=== PATIENT | female | born 1985 | race Caucasian/White ===

== ENCOUNTER 2019-11-20 13:46 | Outpatient (REF) | payer MEDICAID, SELFPAY | END 2019-11-20 13:47 | disposition home or self-care (01) | LOC: HO.LNP 13:46 | PROVIDERS: PCP Family Medicine; Referring Provider Family Medicine; Visit Provider Advanced Practice Midwife | DX: O98.313 Other infections with a predominantly sexual mode of transmission complicating pregnancy, third trimester (principal); A60.09 Herpesviral infection of other urogenital tract; O99.013 Anemia complicating pregnancy, third trimester; D64.9 Anemia, unspecified; O09.293 Supervision of pregnancy with other poor reproductive or obstetric history, third trimester; O99.343 Other mental disorders complicating pregnancy, third trimester; F50.89 Other specified eating disorder; Z3A.36 36 weeks gestation of pregnancy; Z79.899 Other long term (current) drug therapy | CPT/HCPCS: 87081 ==

== ENCOUNTER → 2019-12-12 14:42 | Outpatient (BNVA) | payer MEDICAID, SELFPAY | PROVIDERS: Visit Provider Advanced Practice Midwife | DX: Z76.89 Persons encountering health services in other specified circumstances (principal) ==

== ENCOUNTER → 2019-12-19 15:20 | Outpatient (BNVA) | payer MEDICAID, SELFPAY | PROVIDERS: Visit Provider Advanced Practice Midwife | DX: Z76.89 Persons encountering health services in other specified circumstances (principal) ==

== ENCOUNTER → 2019-12-24 08:43 | Outpatient (BNVA) | payer MEDICAID, SELFPAY | PROVIDERS: Visit Provider Advanced Practice Midwife | DX: O98.513 Other viral diseases complicating pregnancy, third trimester (principal); B00.9 Herpesviral infection, unspecified; O99.013 Anemia complicating pregnancy, third trimester; D64.9 Anemia, unspecified; O99.343 Other mental disorders complicating pregnancy, third trimester; F50.89 Other specified eating disorder; Z79.899 Other long term (current) drug therapy; Z3A.40 40 weeks gestation of pregnancy | CPT/HCPCS: 59025 ==

== ENCOUNTER → 2020-02-05 12:45 | Outpatient (BNVA) | payer MEDICAID, SELFPAY | PROVIDERS: Visit Provider Advanced Practice Midwife | DX: Z39.2 Encounter for routine postpartum follow-up (principal); Z13.31 Encounter for screening for depression | CPT/HCPCS: 99212 ==

== ENCOUNTER → 2020-02-26 11:00 | Outpatient (BNVA) | payer MEDICAID, SELFPAY | PROVIDERS: Visit Provider Obstetrics & Gynecology | DX: Z76.89 Persons encountering health services in other specified circumstances (principal) ==

== ENCOUNTER 2020-03-07 12:16 | Outpatient (REF) | payer MEDICAID, SELFPAY | END 2020-03-07 12:17 | disposition home or self-care (01) | LOC: HO.LAB 12:16 | PROVIDERS: Visit Provider Internal Medicine | DX: Z20.822 Contact with and (suspected) exposure to COVID-19 (principal) | CPT/HCPCS: 36415; C9803; U0003 ==

== ENCOUNTER 2020-03-19 12:25 | Emergency (ER) | payer MEDICAID, SELFPAY ==
[2020-03-19 15:43] VITALS: BP 108/69; PULSE 102; RESP 17; TEMP 37.3; O2SAT 98; BMI 24.7
--- NOTE | 2020-03-19 16:07 | XR_ITS ---
EXAMINATION: XR CHEST CLINICAL INFORMATION: Cough COMPARISON: March 10, 2017 TECHNIQUE: AP portable view of the chest was obtained. FINDINGS: No significant abnormality is noted involving the heart, lungs, mediastinum, bony thorax or soft tissues. XR/XR chest 1V IMPRESSION: No acute disease.
--- NOTE | 2020-03-19 16:15 | ED_ITS ---
HPI - URI/Sore Throat General Chief Complaint: Upper Respiratory Symptoms Stated Complaint: covid symptoms Time Seen by Provider: 03/19/20 15:52 Source: patient Mode of arrival: ambulatory History of Present Illness HPI Narrative: 34-year-old female with a past medical history hemorrhage, gestational diabetes, presenting to the ED complaining of nasal congestion, chills, and mild productive cough of sputum x last week. Reports tested for COVID-19 last week and negative. Admits to her child's father testing positive for COVID-19. Denies fever, chest pain, shortness of breath, recent travel, abdominal pain, nausea/vomiting MD elicited complaint: cough Related Data Home Medications Medication Instructions Recorded Confirmed ferrous sulfate 325 mg (65 mg 325 mg PO DAILY 11/20/19 iron) tablet vitamin with calcium 1 tab PO DAILY 11/20/19 no.72-iron 27 mg-folic acid 1 mg tablet Previous Rx's Medication Instructions Recorded fluticasone propionate [Flonase 2 spray INTRANASAL DAILY #16 g 03/19/20 Allergy Relief] Allergies Allergy/AdvReac Type Severity Reaction Status Date / Time penicillin V Allergy Unknown shortness Verified 02/26/20 11:02 of breath From Pen-Vee K Allergy Intermediate CHILDHOOD Uncoded 11/01/19 17:15 ALLERGY-EXACERBATED ASTHMA Review of Systems Review of Systems: Constitutional: No Weight loss, No Fever, + Chills ENT/Mouth: No Ear Pain, + Nasal Congestion, No Sinus Pain, No Hoarseness, No sore throat, + Rhinorrhea, No Swallowing Difficulty Cardiovascular: No Chest Pain, No SOB Respiratory: + Cough, + Sputum, No Wheezing Gastrointestinal: No Nausea, No Vomiting, No Diarrhea, No Constipation, No Abdominal pain Musculoskeletal: No joint pain, No Myalgias, No Joint Swelling Skin: No Skin Lesions, No rash Yes all other systems are reviewed and are negative [facility] Past Medical History Attestation statement: The following information was validated with the patient. Medical History (Updated 03/19/20 @ 16:18 by LUIS ENRIQUE Stahl) Genital herpes Gestational diabetes History of abnormal cervical Pap smear History of blood transfusion hemorrhage Surgical History (Updated 02/26/20 @ 11:02 by Sugar Rodriguez MA) H/O dilation and curettage Family History Family History Paternal Grandfather Kidney disease Paternal Grandmother Kidney disease Diabetes mellitus Maternal Grandmother Diabetes mellitus Breast cancer Maternal Grandfather No problems noted. Social History Social History Alcohol intake: never Smoking Status: Never smoker Advance Directives: No Advance Directives Information Provided: Yes Gender identity: female Physical Exam Vital Signs: Vital Signs: Last Vital Signs Temp 99.1 F 03/19/20 15:43 Pulse 102 H 03/19/20 15:43 Resp 17 03/19/20 15:43 BP 108/69 03/19/20 15:43 Pulse Ox 98 03/19/20 15:43 Body Mass Index 24.7 Const: General: cooperative, healthy appearing, comfortable, no acute distress and well developed Orientation/consciousness: patient oriented x3 Limitations: no limitations HENMT: Head: Yes normal to inspection Ears: hearing grossly normal bilaterally General nose exam: Normal external nose present Face and sinus: Yes normal facial exam Eyes: General: appearance normal, both eyes and all related structures EOM: EOMs intact bilaterally Neck: Neck: Yes normal visual inspection and Yes no meningeal signs Resp: Effort & Inspection: normal respiratory effort Auscultation: clear to auscultation bilaterally, no rales, no rhonchi and no wheezes Cardio: Rate: regular rate Heart sounds: S1 normal heart sound present and S2 normal heart sound present GI: Inspection: Yes normal to inspection Skin: Rashes: no rashes Wounds: no wounds Neuro: General: patient oriented x3 and no meningeal signs Gait exam (Neuro): Normal gait present Extrem: General: Yes normal to inspection Course Course Course Narrative: -COVID-19/influenza/RSV negative MDM - URI/Sore Throat MDM Narrative Medical decision making narrative: On exam low-grade temp 99.1?, mildly tachycardic likely from fever. Nontoxic, lungs CTA. Concern for viral syndrome/COVID-19. Lower concern for pneumonia/bacterial infection. Low concern for PE/ACS Plan: COVID-19 testing, CXR, re-evaluated Medical Records Attestation: I reviewed the patient's medical records. Lab Data Labs: Lab Results 03/19/20 Range/Units 16:21 Coronavirus (PCR) NEGATIVE (Negative) Influenza Type A (PCR) NEGATIVE (Negative) Influenza Type B (PCR) NEGATIVE (Negative) RSV RNA Qual (PCR) NEGATIVE (Negative) Discharge Plan Discharge Clinical Impression: Upper respiratory infection Patient Disposition: Home, Self-Care Instructions: Viral Syndrome (ED) Additional Instructions: You tested negative for COVID-19/the flu/RSV. Flonase is a nasal decongestant, take as needed. Rest. Stay hydrated. Follow-up with her doctor CDC Guidelines for home isolation: - Stay away from others - WEAR A MASK if you are sick AND STAY HOME - Cover your mouth and nose with a tissue when you cough or sneeze. Dispose of tissues in a lined trash can and wash your hands immediately with soap and water for at least 20 seconds. If soap and water are not available, clean hands with alcohol-based hand political organizer that contains at least 60% alcohol. - Clean your hands often with soap and water for at least 20 seconds - Avoid touching your eyes, nose and mouth with unwashed hands - Do not share dishes, drinking glasses, cups, eating utensils, towels, or bedding with other people in your home. After using these items, wash them thoroughly with soap and water or put in the residential mortgage manager. - Clean high-touch surfaces in your isolation area ( sick room and bathroom) every day; let a caregiver clean and disinfect high-touch surfaces in other areas of the home. Clean the area or item with soap and water or another detergent if it is dirty. Then, use a household disinfectant. - Limit contact with pets and animals: If you must care for a pet, wash your hands before and after interacting with them) Prescriptions: New fluticasone propionate [Flonase Allergy Relief] 50 mcg/actuation spray,suspension 2 spray intranasal DAILY Qty: 16 RF: 0 No Action Plus (calcium carb) 27 mg iron- 1 mg tablet 1 tab PO DAILY RF: 0 ferrous sulfate 325 mg (65 mg iron) tablet 325 mg PO DAILY RF: 0 Referrals: Shanti Crane MD [Primary Care Provider] - 2 days
[2020-03-19] MEDS: Acetaminophen 325 MG TABLET 650 MG PO (16:18)
[2020-03-19 17:15] LABS: Influenza A PCR NEGATIVE (Negative); Influenza B PCR NEGATIVE (Negative); Resp Syncy Virus RNA Qual PCR NEGATIVE (Negative); SARS COV2 PCR INHOUSE NEGATIVE (Negative)
== END 2020-03-19 17:51 | disposition home or self-care (01) ==
PROVIDERS: Physician Assistant; Emergency Provider Emergency Medicine; PCP Family Medicine
DX: J06.9 Acute upper respiratory infection, unspecified (principal); Z20.822 Contact with and (suspected) exposure to COVID-19; R50.9 Fever, unspecified
CPT/HCPCS: 0241U; 36415; 71045; 99283

== ENCOUNTER 2020-04-08 13:28 | Outpatient (REF) | payer MEDICAID, SELFPAY | END 2020-04-08 13:29 | disposition home or self-care (01) | LOC: HO.LAB 13:28 | PROVIDERS: PCP Family Medicine; Visit Provider Obstetrics & Gynecology | DX: R87.610 Atypical squamous cells of undetermined significance on cytologic smear of cervix (ASC-US) (principal); R87.810 Cervical high risk human papillomavirus (HPV) DNA test positive; Z88.0 Allergy status to penicillin | CPT/HCPCS: 57454; 81025; 88305 ==

== ENCOUNTER → 2020-04-22 14:22 | Outpatient (BNVA) | payer MEDICAID, SELFPAY | PROVIDERS: PCP Family Medicine; Visit Provider Obstetrics & Gynecology ==

== ENCOUNTER → 2020-05-27 09:07 | Outpatient (BNVA) | payer MEDICAID, SELFPAY | PROVIDERS: PCP Family Medicine; Visit Provider Obstetrics & Gynecology | DX: Z30.09 Encounter for other general counseling and advice on contraception (principal) | CPT/HCPCS: 99212 ==

== ENCOUNTER 2020-05-29 07:09 | Day surgery (SDC) | payer MEDICAID, SELFPAY ==
[2020-05-23 11:18] VITALS: BMI 24.1
--- NOTE | 2020-05-27 14:05 | HO.ANESPROP2 ---
Documented by User: Flores Romero 05/27/20 14:06 HPI - Anesthesia Eval Consult details Narrative: 34yo F for Bilateral Salpingectomy Laparoscopic PMFSH Active Problems Active Problems: All Active Problems (Updated 04/22/20 @ 14:31 by Ho Aguayo MD) ASCUS with positive high risk HPV (Acute) Depression screen (Acute) Encounter for assessment (Acute) Decreased movement (Acute) Right calf pain (Acute) Anemia affecting (Acute) Supervision of other normal (Acute) Genital herpes affecting in third trimester (Acute) Past Medical History Medical History Genital herpes Gestational diabetes History of abnormal cervical Pap smear History of blood transfusion hemorrhage Family History Family History Paternal Grandfather Kidney disease Paternal Grandmother Kidney disease Diabetes mellitus Maternal Grandmother Diabetes mellitus Breast cancer Maternal Grandfather No problems noted. Surgical History Surgical History H/O dilation and curettage Social History Social History Are you a primary senior care provider to a significant other at home: No Do you presently have visiting nurse or other home services: No Alcohol intake: never Smoking Status: Never smoker Use of substances other than those prescribed or required for medical reasons: No Have you been hit, kicked, punched, or otherwise hurt by someone within the past year? If so, by whom?: No Advance Directives: No Advance Directives Information Provided: No Advance Directives on File: No Recently lost weight without trying: No Gender identity: female Meds Allergies Allergy/AdvReac Type Severity Reaction Status Date / Time penicillin V Allergy Unknown shortness Verified 05/27/20 09:13 of breath From Pen-Vee K Allergy Intermediate CHILDHOOD Uncoded 05/23/20 11:11 ALLERGY-EXACERBATED ASTHMA Exam Exam Date and Time: May 27, 2020 1405 Height,Weight and Vital Signs: Height 5 ft 2 in Weight 59.874 kg Assessment and Plan Assessment Anesthesia Assessment: Chart Reviewed Documented by User: Inna Moore 05/29/20 08:46 [facility] Past Medical History Medical History Genital herpes Gestational diabetes History of abnormal cervical Pap smear History of blood transfusion hemorrhage Family History Family History Paternal Grandfather Kidney disease Paternal Grandmother Kidney disease Diabetes mellitus Maternal Grandmother Diabetes mellitus Breast cancer Maternal Grandfather No problems noted. Family history of problems with anesthesia: No Surgical History Surgical History H/O dilation and curettage History of Problems with Anesthesia: No Social History Social History Are you a primary senior care provider to a significant other at home: No Do you presently have visiting nurse or other home services: No Alcohol intake: never Smoking Status: Never smoker Use of substances other than those prescribed or required for medical reasons: No Have you been hit, kicked, punched, or otherwise hurt by someone within the past year? If so, by whom?: No Advance Directives: No Advance Directives Information Provided: No Advance Directives on File: No Recently lost weight without trying: No Gender identity: female Meds Allergies Allergy/AdvReac Type Severity Reaction Status Date / Time penicillin V Allergy Unknown shortness Verified 05/27/20 09:13 of breath From Pen-Vee K Allergy Intermediate CHILDHOOD Uncoded 05/23/20 11:11 ALLERGY-EXACERBATED ASTHMA Exam Height,Weight and Vital Signs: Vital Signs Temp Pulse Resp BP Pulse Ox 05/29/20 07:37 97.2 F 88 16 108/69 97 Lab Results 05/29/20 Range/Units 07:20 Urine Test NEGATIVE (NEGATIVE) Airway Mallampati Class: II TM Dist: >3cm Neck ROM: Full Heart: RRR Lungs: CTAB Assessment and Plan Assessment Anesthesia Assessment: Anesthesia Plan Discussed and Chart Reviewed Final Anesthetic Review NPO: Yes ASA Class: II Final Preanesthetic Review: No Changes in Pt Med Stat, Meds/Allgs Chart Reviewed, Consent Obtained/Reviewed and Anes Risks/Benef Reviewed Patient Risk: Low Procedure Risk: Intermediate Assessment/Block/Sedation in SS: Assess/Block/Sedation-SS Anesthetic Plan Anesthetic Plan: GA Disposition: Standard PACU
[2020-05-29] VITALS (7 sets, daily range): BP systolic 99–108; BP diastolic 63–74; PULSE 88–107; RESP 16; TEMP 36.1–36.6; O2SAT 94–100
[2020-05-29 07:35] LABS: UPreg QC Valid YES; Urine Pregnancy NEGATIVE (NEGATIVE)
[2020-05-29] MEDS: Lactated Ringers 1,000 ML 100 ML IVCONT (07:52)
[2020-05-29] MEDS: Acetaminophen 325 MG TABLET 650 MG PO (07:53)
--- NOTE | 2020-05-29 08:50 | P.OP_ITS ---
Operative Note Operative Note Date of Service: 05/29/20 Narrative: Pre-operative Diagnosis: Unwanted fertility Post-operative Diagnosis: Unwanted fertility Procedures Performed: laparoscopic bilateral salpingectomy Ms. Leon is a 34yo who has completed her childbearing and desires permanent sterilization. Surgical Risks: The patient was informed of the risks and benefits of the procedure. Risks included but were not limited to bleeding; infection; injury to ovaries, uterus, bladder, bowels, nerves, and blood vessels. The patient was counseled on the risk of sterilization failure being about 1% on average. The patient was informed that in the event a occurs, the risk of ectopic is increased. The patient expressed understanding of the risks involved, all questions were answered, and the patient consented to the procedure. The patient had valid sterilization consent at the time of the procedure. The patient was taken to the operating room where a time out was performed to confirm correct patient and correct procedure. General anesthesia was esta blished. The patient was then positioned on the operating table in the dorsal lithotomy position with the legs supported using stirrups. All pressure points were padded and a warm blanket was placed to maintain control of core body temperature. The patient was then prepped and draped in the usual sterile fashion. A red rubber catheter was inserted and 200mL urine obtained. A spongestick was placed in the vagina for uterine manipulation. Attention was turned to the abdomen where a 5mm vertical infraumbilical incision was made. The 5mm trocar was introduced under direct visualization using the laparoscopy within the sleeve of the trocar. After intra-abdominal placement had been confirmed, the trocar was removed leaving the sleeve in place. The camera was introduced and pneumoperitoneum was established using carbon dioxide. Inspection of the abdominal cavity showed no gross abnormalities and there was no evidence of injury to the bowel, bladder, or vasculature. Attention was turned to the pelvis. The patient was placed into Trendelenburg position. The fallopian tubes and ovaries were visualized bilaterally. There were no abnormalities noted. A small incision was made in on the patient's left approximately 2cm superior to and 2cm medial to the left ASIS. A 5mm trocar was introduced through this incision under direct visualization with the laparoscope. The identical procedure was then performed on the right. The fallopian tubes were inspected bilaterally and the fimbriated ends of the fallopian tube were visualized bilaterally. The distal end of the right tube was grasped and lifted up and being careful to avoid the ovarian vessels, salpingectomy was performed walking the Ligasure device from the distal to the medial end of the tube, where it was cauterized and cut from the uterus at the cornua and removed through the trocar. The identical procedure was then performed on the left. The tubes were sent to pathology for analysis. The pneumoperitoneum was then evacuated. The laparoscope was removed and the trocar sleeves were removed. The skin incisions were closed using 3-0 Vicryl in a single interrupted suture and Dermabond was then applied. Good hemostasis was confirmed. The spongestick was removed from the vagina. The patient was transferred to the recovery room in stable condition. All needle, sponge, and instrument counts were noted to be correct x2 at the end of the procedure.
--- NOTE | 2020-05-29 08:50 | MHC.SHP ---
Pre-Procedural Eval Section A The patient is an INPATIENT: No Changes since office visit: No Cold of Flu in the past 2 weeks, No New Medical Problems, No Changes in Medication and No Patient answered all questions The History & Physical has been completed within 30 days and I have reviewed it.: Yes Section B Chief Complaint: Unwanted Fertility Allergies: Allergies Allergy/AdvReac Type Severity Reaction Status Date / Time penicillin V Allergy Unknown shortness Verified 05/27/20 09:13 of breath From Pen-Vee K Allergy Intermediate CHILDHOOD Uncoded 05/23/20 11:11 ALLERGY-EXACERBATED ASTHMA Plan I have reviewed the history and physical and performed a pertinent physical examination on my patient. No changes have occurred unless specified.
== END 2020-05-29 11:48 | disposition home or self-care (01) ==
LOC: HO.SSS 07:09
PROVIDERS: PCP Family Medicine; Visit Provider Obstetrics & Gynecology
PROC: (CPT 58661; principal; 2020-05-29 09:00)
DX: Z30.2 Encounter for sterilization (principal); A60.00 Herpesviral infection of urogenital system, unspecified; Z88.0 Allergy status to penicillin
CPT/HCPCS: 58661; 81025; 88302; J1100; J1885; J2250; J2405; J3010

== ENCOUNTER 2020-08-01 14:44 | Outpatient (REF) | payer MEDICAID, SELFPAY ==
--- NOTE | ~2020-08-01 | MM_ITS ---
EXAMINATION: MM DIAGNOSTIC DIGITAL BREAST TOMOSYNTHESIS, BILATERAL US DIAGNOSTIC ULTRASOUND BREAST, LEFT CLINICAL INFORMATION: 35-year-old with cyclical left mastodynia for several months. Patient 7 months post . No breast feeding past 5 months. No palpable mass. No prior breast imaging. Patient denies any right breast symptoms. Family history breast cancer maternal grandmother. The lifetime risk of breast cancer based on the Tyrer-Cuzick Model is 11%. COMPARISON: None (current study represents initial baseline exam). TECHNIQUE: Digital breast tomosynthesis is performed in both the craniocaudal and mediolateral oblique views along with computer-aided detection (CAD). Synthesized 2D images are generated from the tomosynthesis. Ultrasound left breast is targeted to the areas of clinical concern. Grayscale imaging and color Doppler are performed without and with harmonics. FINDINGS: There are scattered areas of fibroglandular density (ACR BI-RADS breast composition Category b). There are no significant masses, abnormal calcifications, or other abnormalities. The axilla and skin contours are unremarkable. There is no skin thickening or coarsening of the Stephen's ligaments. No lymphadenopathy. Ultrasound left breast demonstrates no cystic or solid mass or architectural abnormality. No focal duct ectasia. No hyperemia. No skin thickening or edema tracking in soft tissue planes. Results are discussed with the patient at time of visit. MM/MM tomosynthesis diagnostic BI IMPRESSION: 1. No mammographic evidence of malignancy or inflammatory changes. 2. Unremarkable targeted left breast ultrasound.. ASSESSMENT: BI-RADS 1: Negative RECOMMENDATION: 1. Patient cyclical breast pain should be managed based on the clinical impression. 2. Otherwise, routine annual screening mammography, beginning age 40, or earlier as clinical risk factors warrant. This patient's information was entered into a reminder system with a target due date for their next mammogram.
== END 2020-08-01 14:45 | disposition home or self-care (01) ==
LOC: HO.MAMMO 14:44
PROVIDERS: Visit Provider Family Medicine
DX: N64.4 Mastodynia (principal)
CPT/HCPCS: 76642; 77062; 77066

== ENCOUNTER 2020-08-25 13:24 | Outpatient (REF) | payer MEDICAID, SELFPAY ==
[2020-08-28 13:17] LABS: HPV mRNA E6/E7 rflx Not Detected (Not Detected)
== END 2020-08-25 13:25 | disposition home or self-care (01) ==
LOC: HO.LAB 13:24
PROVIDERS: PCP Family Medicine; Visit Provider Obstetrics & Gynecology
DX: Z01.419 Encounter for gynecological examination (general) (routine) without abnormal findings (principal); Z11.51 Encounter for screening for human papillomavirus (HPV); F41.8 Other specified anxiety disorders; Z88.0 Allergy status to penicillin
CPT/HCPCS: 87624; 88142

== ENCOUNTER 2020-09-24 14:20 | Outpatient (REF) | payer MEDICAID, SELFPAY | END 2020-09-24 14:21 | disposition home or self-care (01) | LOC: HO.LAB 14:20 | PROVIDERS: PCP Family Medicine; Visit Provider Obstetrics & Gynecology | DX: R87.610 Atypical squamous cells of undetermined significance on cytologic smear of cervix (ASC-US) (principal) | CPT/HCPCS: 57454; 88305 ==

== ENCOUNTER → 2020-10-07 11:40 | Outpatient (BNVA) | payer MEDICAID, SELFPAY | PROVIDERS: PCP Family Medicine; Visit Provider Obstetrics & Gynecology ==

== ENCOUNTER 2021-02-24 14:25 | Outpatient (REF) | payer MEDICAID, SELFPAY ==
[2021-02-25 09:09] LABS: BV Int Neg Control Negative (Negative); BV Int Pos Control Positive (Positive)
[2021-02-25 10:33] LABS: CT PCR NOT DETECTED (Not Detect.); NG PCR NOT DETECTED (Not Detect.)
== END 2021-02-24 14:26 | disposition home or self-care (01) ==
LOC: HO.LAB 14:25
PROVIDERS: PCP Family Medicine; Visit Provider Obstetrics & Gynecology
DX: N76.0 Acute vaginitis (principal); B96.89 Other specified bacterial agents as the cause of diseases classified elsewhere
CPT/HCPCS: 87480; 87491; 87510; 87591; 87660; 99212

== ENCOUNTER 2021-03-12 12:31 | Emergency (ER) | payer MEDICAID, SELFPAY ==
[2021-03-12 12:40] VITALS: BP 140/90; PULSE 106; RESP 18; TEMP 36.5; O2SAT 96; BMI 22.6
[2021-03-12 12:59] LABS: MANUAL DIFF FLAG NO
[2021-03-12 13:00] LABS: Basophils Absolute Auto 0.1 X10*3/uL (0.0-0.2); Basophils Percent Auto 0.4 % (0-2); Eosinophils Absolute Auto 0.2 X10*3/uL (0.0-0.4); Eosinophils Percent Auto 1.3 % (0-4); Hematocrit 39.9 % (37.0-47.0); Hemoglobin 12.9 g/dl (12.0-16.0); Imm Gran Abs Auto 0.04 X10*3/uL (0.00-0.03); Imm Gran Pct Auto 0.4 % (0.0-0.4); Lymphocytes Absolute Auto 3.6 X10*3/uL (1.2-4.9); Lymphocytes Percent Auto 31.8 % (20-40); Mean Corpuscular HGB Conc 32.3 g/dl (31.0-35.0); Mean Corpuscular Hemoglobin 27.6 pg (27.0-33.0); Mean Corpuscular Volume 85.4 fL (80.0-98.0); Mean Platelet Volume 9.1 fL (9.4-12.3); Monocytes Absolute Auto 0.7 X10*3/uL (0.1-1.2); Monocytes Percent Auto 6.1 % (2-11); Neutrophils Absolute Auto 6.7 x10*3/uL (2.0-8.3); Platelet Count 439 X10*3/uL (160-400); Red Blood Count 4.67 X10*6/uL (4.20-5.50); Red Cell Distribution Width 14.5 % (11.0-16.0); White Blood Count 11.2 X10*3/uL (4.8-10.8)
[2021-03-12 13:11] LABS: Appearance Urine HAZY; Color Urine YELLOW; Glucose Urine UA 100 MG/DL (NEG); Leukocyte Esterase Urine 1+ (NEG); Nitrite Urine NEG (NEG); PH 5.5 (5.0-8.0); Specific Gravity - Urine >= 1.030 (1.005-1.025); UACC Culture Trigger YES; Urine Blood 3+ (NEG); Urine Ketones NEG (NEG); Urine Protein NEG (NEG-TRACE)
[2021-03-12 13:12] LABS: UPreg QC Valid YES; Urine Pregnancy NEGATIVE (NEGATIVE)
[2021-03-12 13:14] LABS: Alanine Aminotransferase 14 U/L (0-31); Albumin Level 4.5 g/dL (3.5-5.0); Alkaline Phosphatase 83 U/L (39-117); Anion Gap 13 (12-20); Aspartate Amino Transferase 17 U/L (5-31); Bilirubin Total 0.4 mg/dL (0.0-1.0); Blood Urea Nitrogen 8 mg/dL (9-16); Calcium 9.8 mg/dL (8.4-10.2); Carbon Dioxide 23 mmol/L (22-29); Chloride 105 mmol/L (96-108); Creatinine Clr Calc Pharmacy 92.1; Estimated Glomerular Filt Rate > 60; Glucose Random 91 mg/dL (60-115); Potassium 4.3 mmol/L (3.3-5.1); Sodium 137 mmol/L (135-145); Total Protein 7.6 g/dL (6.5-8.0)
[2021-03-12 13:18] LABS: COVID-19 Test Negative (Negative)
[2021-03-12 13:23] LABS: Bacteria Urine 1+ /LPF; Squamous Epithelial Cell Urine 3+ /LPF
[2021-03-12 16:44] VITALS: BP 123/89; PULSE 84; O2SAT 99
--- NOTE | 2021-03-12 16:58 | ED_ITS ---
HPI - Headache General Chief Complaint: Headache Stated Complaint: headache R side pressure Time Seen by Provider: 03/12/21 16:57 Source: patient Mode of arrival: ambulatory Limitations: no limitations History of Present Illness HPI Narrative: Patient's history of migraine headaches in complaining of headache on the right side behind the eye for last 3 days no nausea no vomiting no radiation with posture no vision changes no fever or chills Related Data Home Medications Medication Instructions Recorded Confirmed trazodone 50 mg tablet 50 mg PO BEDTIME PRN 08/25/20 Previous Rx's Medication Instructions Recorded fluticasone propionate 50 2 spray INTRANASAL DAILY #16 g 03/19/20 mcg/actuation nasal spray,suspension (Flonase Allergy Relief) acetaminophen 650 mg 650 mg PO Q8H PRN #60 tab 05/28/20 tablet,extended release ibuprofen 800 mg tablet 800 mg PO Q8H PRN #60 tab 05/28/20 oxycodone 5 mg capsule 5 mg PO Q6H PRN #15 cap 05/28/20 metronidazole 500 mg tablet 500 mg PO BID 7 Days #14 tab 02/24/21 Allergies Allergy/AdvReac Type Severity Reaction Status Date / Time penicillin V Allergy Unknown shortness Verified 03/12/21 12:40 of breath From Pen-Vee K Allergy Intermediate CHILDHOOD Uncoded 05/23/20 11:11 ALLERGY-EXACER BATED ASTHMA Review of Systems Verdana 4l Review of Systems: Yes all other systems are reviewed and Verdana 4d are negative PMFSH Past Medical History Medical History ASCUS with positive high risk HPV Depression with anxiety Genital herpes Gestational diabetes History of abnormal cervical Pap smear History of blood transfusion hemorrhage Surgical History H/O dilation and curettage History of bilateral salpingectomy Family History Family History Paternal Grandfather Kidney disease Paternal Grandmother Kidney disease Diabetes mellitus Maternal Grandmother Diabetes mellitus Breast cancer Maternal Grandfather No problems noted. Social History Social History Are you a primary critical care physician to a significant other at home: No Do you presently have visiting nurse or other home services: No Alcohol intake: never Advance Directives: No Advance Directives Information Provided: No Gender identity: Female Physical Exam Verdana 4l Vital Signs: Verdana 4d Verdana 4d Vital Signs: Verdana 4d Verdana 4Bd Last Vital Signs Verdana 4d Driller Multiple Spindle New 4d Driller Multiple Spindle New 4d Temp 97.7 F 03/12/21 12:40 Driller Multiple Spindle New 4d Pulse 84 03/12/21 16:44 Driller Multiple Spindle New 4d Resp 18 03/12/21 12:40 BP 123/89 03/12/21 16:44 Pulse Ox 99 03/12/21 16:44 BMI result Body Mass Index 22.6 Appearance: Alert. Oriented X3. No acute distress. Eyes: PERRLA, no light sensitivity ENT: Pharynx normal. Oral Mucosa moist Neck: Normal inspection. Neck supple. CVS: Normal heart rate and rhythm. Pulses normal. Respiratory: No respiratory distress. Equal air entry bilateral, Abdomen: Soft and nontender. Bowel sounds are present, no mass palpable, no CVA tenderness Skin: Skin warm and dry. Normal skin color. Normal skin turgor. Extremities: No lower extremity edema. No calf tenderness Neuro: Oriented X 3. No motor deficit. No sensory deficit.No cerebellar signs , cranial nerves II-XII intact MDM - Headache MDM Narrative Medical decision making narrative: patient with recurrent migraine headaches came with right ocular pain improved after Imitrex patient feeling much better likely patient has ocular migraine will discharge patient home on Imitrex and Fioricet Lab Data Attestation: I reviewed the patient's lab results. Result diagrams: 03/12/21 12:47 03/12/21 12:47 Labs: Lab Results 03/12/21 03/12/21 03/12/21 Range/Units 12:47 12:47 12:47 WBC 11.2 H (4.8-10.8) X10*3/uL RBC 4.67 (4.20-5.50) X10*6/uL Hgb 12.9 (12.0-16.0) g/dl Hct 39.9 (37.0-47.0) % MCV 85.4 (80.0-98.0) fL MCH 27.6 (27.0-33.0) pg MCHC 32.3 (31.0-35.0) g/dl RDW 14.5 (11.0-16.0) % Plt Count 439 H (160-400) X10*3/uL MPV 9.1 L (9.4-12.3) fL Immature Gran % (Auto) 0.4 (0.0-0.4) % Neut % (Auto) 60.0 (45-73) % Lymph % (Auto) 31.8 (20-40) % [place] % (Auto) 6.1 (2-11) % Eos % (Auto) 1.3 (0-4) % Baso % (Auto) 0.4 (0-2) % Lymph # (Auto) 3.6 (1.2-4.9) X10*3/uL [place] # (Auto) 0.7 (0.1-1.2) X10*3/uL Eos # (Auto) 0.2 (0.0-0.4) X10*3/uL Baso # (Auto) 0.1 (0.0-0.2) X10*3/uL Abs Immat Gran (auto) 0.04 H (0.00-0.03) X10*3/uL Absolute Neuts (auto) 6.7 (2.0-8.3) x10*3/uL Absolute Nucleated RBC 0.000 (0.0-0.012) X10*3/uL Nucleated RBC % (auto) 0.0 (0.0-0.2) /100WBC Sodium 137 (135-145) mmol/L Potassium 4.3 (3.3-5.1) mmol/L Chloride 105 (96-108) mmol/L Carbon Dioxide 23 (22-29) mmol/L Anion Gap 13 (12-20) BUN 8 L (9-16) mg/dL Creatinine 0.68 (0.5-1.4) mg/dL Estim Creat Clear Calc 92.1 Estimated GFR > 60 Random Glucose 91 (60-115) mg/dL Calcium 9.8 (8.4-10.2) mg/dL Total Bilirubin 0.4 (0.0-1.0) mg/dL AST 17 (5-31) U/L ALT 14 (0-31) U/L Alkaline Phosphatase 83 (39-117) U/L Total Protein 7.6 (6.5-8.0) g/dL Albumin 4.5 (3.5-5.0) g/dL Urine Color Urine Appearance Urine pH (5.0-8.0) Ur Specific [place] (1.005-1.025) Urine Protein (NEG-TRACE) MG/DL Urine Glucose (UA) (NEG) MG/DL Urine Ketones (NEG) MG/DL Urine Blood (NEG) Urine Nitrite (NEG) Ur Leukocyte Esterase (NEG) Urine RBC (0) /HPF Urine WBC (0-4) /HPF Ur Squamous Epith Cells /LPF Urine Bacteria /LPF Urine Test (NEGATIVE) COVID-19 (TOBIAS) Negative (Negative) COVID-19 Clin Com See Note 03/12/21 03/12/21 Range/Units 13:03 13:03 WBC (4.8-10.8) X10*3/uL RBC (4.20-5.50) X10*6/uL Hgb (12.0-16.0) g/dl Hct (37.0-47.0) % MCV (80.0-98.0) fL MCH (27.0-33.0) pg MCHC (31.0-35.0) g/dl RDW (11.0-16.0) % Plt Count (160-400) X10*3/uL MPV (9.4-12.3) fL Immature Gran % (Auto) (0.0-0.4) % Neut % (Auto) (45-73) % Lymph % (Auto) (20-40) % [place] % (Auto) (2-11) % Eos % (Auto) (0-4) % Baso % (Auto) (0-2) % Lymph # (Auto) (1.2-4.9) X10*3/uL [place] # (Auto) (0.1-1.2) X10*3/uL Eos # (Auto) (0.0-0.4) X10*3/uL Baso # (Auto) (0.0-0.2) X10*3/uL Abs Immat Gran (auto) (0.00-0.03) X10*3/uL Absolute Neuts (auto) (2.0-8.3) x10*3/uL Absolute Nucleated RBC (0.0-0.012) X10*3/uL Nucleated RBC % (auto) (0.0-0.2) /100WBC Sodium (135-145) mmol/L Potassium (3.3-5.1) mmol/L Chloride (96-108) mmol/L Carbon Dioxide (22-29) mmol/L Anion Gap (12-20) BUN (9-16) mg/dL Creatinine (0.5-1.4) mg/dL Estim Creat Clear Calc Estimated GFR Random Glucose (60-115) mg/dL Calcium (8.4-10.2) mg/dL Total Bilirubin (0.0-1.0) mg/dL AST (5-31) U/L ALT (0-31) U/L Alkaline Phosphatase (39-117) U/L Total Protein (6.5-8.0) g/dL Albumin (3.5-5.0) g/dL Urine Color YELLOW Urine Appearance HAZY Urine pH 5.5 (5.0-8.0) Ur Specific [place] >= 1.030 H (1.005-1.025) Urine Protein NEG (NEG-TRACE) MG/DL Urine Glucose (UA) 100 H (NEG) MG/DL Urine Ketones NEG (NEG) MG/DL Urine Blood 3+ H (NEG) Urine Nitrite NEG (NEG) Ur Leukocyte Esterase 1+ H (NEG) Urine RBC 5-9 H (0) /HPF Urine WBC 5-9 H (0-4) /HPF Ur Squamous Epith Cells 3+ /LPF Urine Bacteria 1+ /LPF Urine Test NEGATIVE (NEGATIVE) COVID-19 (TOBIAS) (Negative) COVID-19 Clin Com Discharge Plan Discharge Clinical Impression: Ophthalmic migraine Patient Disposition: Home, Self-Care Instructions: Ocular Migraine (ED) Additional Instructions: take medication as prescribed Imitrex 1 tablet as soon as you notice headache may repeat the fill in 2 hours if headache continues not more than 2 pills in 24 hours Fioricet 1 tablet every 6 hours as needed if headache continues Prescriptions: No Action fluticasone propionate [Flonase Allergy Relief] 50 mcg/actuation spray,suspension 2 spray intranasal DAILY Qty: 16 0RF Rx Instructions: administer into each nostril ibuprofen 800 mg tablet 800 mg PO Q8H PRN (Reason: pain) Qty: 60 1RF acetaminophen 650 mg tablet extended release 650 mg PO Q8H PRN (Reason: pain) Qty: 60 1RF oxycodone 5 mg capsule 5 mg PO Q6H PRN (Reason: pain) Qty: 15 0RF Rx Instructions: Take in addition to ibuprofen and tylenol as needed for breakthrough pain trazodone 50 mg tablet 50 mg PO BEDTIME PRN0RF metronidazole 500 mg tablet 500 mg PO BID 7 Days Qty: 14 0RF
[2021-03-12] MEDS: SUMAtriptan succinate 6 MG/0.5 ML VIAL SUBCUT (17:13)
[2021-03-12] MEDS: Butalb/Acetamin/Caff 50/325/40 TABLET 1 TAB PO (18:35)
== END 2021-03-12 18:43 | disposition home or self-care (01) ==
PROVIDERS: Emergency Provider Internal Medicine; PCP Family Medicine
DX: G43.B0 Ophthalmoplegic migraine, not intractable (principal); Z20.822 Contact with and (suspected) exposure to COVID-19
CPT/HCPCS: 80053; 81001; 81025; 85025; 87086; 87635; 96372; 99284; J3030

== ENCOUNTER 2021-03-25 15:22 | Outpatient (REF) | payer MEDICAID, SELFPAY ==
--- NOTE | ~2021-03-25 | CT_ITS ---
EXAMINATION: CT HEAD WITHOUT CONTRAST CLINICAL INFORMATION: Headache COMPARISON: Previous head CT September 2010 TECHNIQUE: Contiguous axial imaging was performed from the skull base to vertex without intravenous administration of contrast. This CT examination was performed using dose optimization techniques as appropriate, variously including the following: *Automated exposure control *Adjustment of mA and/or kV according to patient size (this includes techniques or standardized protocols for targeted exams where dose is matched to indication/reason for exam; i.e. extremities or head) *Use of iterative reconstruction technique DLP: 647 mGy-cm FINDINGS: There is no evidence of acute intracranial hemorrhage or territorial infarction. No abnormal mass effect or midline shift is seen. [place] to white matter differentiation is well preserved. No extra-axial fluid collections are identified. The ventricles are normal in size. There is no abnormal attenuation within the brain parenchyma. The osseous structures and soft tissues are normal. There is complete opacification of the bilateral maxillary sinuses. Right maxillary sinus appears heterogeneous in attenuation with high and low attenuation areas probably representing long-standing infection/inspissated secretions. This is a new finding compared to 2011 exam. Left maxillary sinus appears low in attenuation with expansion questionable for a large polyp or mucous retention. Findings on the left are left are similar to previous exam. CT/CT head/brain wo con IMPRESSION: No acute intracranial disease. Right maxillary sinus disease new in the interval from previous exam. Probable large polyp or cyst in the left maxillary sinus similar to 2011 exam.
== END 2021-03-25 15:23 | disposition home or self-care (01) ==
LOC: HO.CT 15:22
PROVIDERS: Visit Provider Family Medicine
DX: R51.9 Headache, unspecified (principal)
CPT/HCPCS: 70450

== ENCOUNTER 2021-04-29 08:40 | Outpatient (REF) | payer MEDICAID, SELFPAY ==
[2021-04-29 15:57] LABS: CT PCR NOT DETECTED (Not Detect.); NG PCR NOT DETECTED (Not Detect.)
[2021-04-30 15:42] LABS: BV Int Neg Control Negative (Negative); BV Int Pos Control Positive (Positive)
== END 2021-04-29 08:41 | disposition home or self-care (01) ==
LOC: HO.LAB 08:40
PROVIDERS: PCP Family Medicine; Visit Provider Obstetrics & Gynecology
DX: B37.3 Candidiasis of vulva and vagina (principal); Z11.3 Encounter for screening for infections with a predominantly sexual mode of transmission
CPT/HCPCS: 87480; 87491; 87510; 87591; 87660; 99212

== ENCOUNTER 2021-05-04 12:00 | Outpatient (REF) | payer MEDICAID, SELFPAY ==
[2021-05-04 14:02] LABS: Syphilis Screen Nonreactive (Nonreactive)
[2021-05-06 07:49] LABS: HBsAGNum1 0.19 S/CO (0.00-0.99); HIV AB/AG Nonreactive (Nonreactive); HIV Num 1 0.06 S/CO (0.00-0.99); Hepatitis B Surface Antigen Negative (Negative)
[2021-05-06 08:30] LABS: ~HepC Num1 0.21 S/CO (0.00-0.79); ~Hepatitis C Antibody Nonreactive (Nonreactive)
== END 2021-05-04 12:01 | disposition home or self-care (01) ==
LOC: HO.LAB 12:00
PROVIDERS: PCP Family Medicine; Visit Provider Obstetrics & Gynecology
DX: Z11.3 Encounter for screening for infections with a predominantly sexual mode of transmission (principal); Z11.4 Encounter for screening for human immunodeficiency virus [HIV]; Z11.59 Encounter for screening for other viral diseases
CPT/HCPCS: 36415; 86780; 86803; 87340; 87389

== ENCOUNTER 2021-05-20 16:31 | Emergency (ER) | payer MEDICAID, SELFPAY ==
--- NOTE | ~2021-05-20 | CT_ITS ---
EXAMINATION: CT SOFT TISSUE NECK WITH CONTRAST CLINICAL INFORMATION: Fever. Sore throat. Abscess. COMPARISON: CT neck from 06/03/2010. TECHNIQUE: Multidetector helical imaging was performed in the axial plane following the administration of 60 mL of Omnipaque 350 intravenous contrast. Multiple axial reformats and coronal/sagittal reconstructions were created the technologist workstation for review. This CT examination was performed using dose optimization techniques as appropriate, variously including the following: *Automated exposure control. *Adjustment of mA and/or kV according to patient size (this includes techniques or standardized protocols for targeted exams where dose is matched to indication/reason for exam; i.e. extremities or head). *Use of iterative reconstruction technique. DLP: 421 mGy-cm FINDINGS: No significant cutaneous thickening or subcutaneous inflammation. No discrete fluid collection within the deep tissues of the neck. The premaxillary, retromaxillary, pterygopalatine fossa, orbital apical, parapharyngeal, and prelaryngeal adipose tissue is maintained. Normal appearance of the parotid, submandibular, and thyroid glands. Moderate smooth mucosal thickening throughout the pharynx. Moderate heterogeneous enlargement of the adenoids and bilateral palatine tonsils without demonstrated discrete fluid collection or mass lesion. Near abutment of the palatine tonsils in the midline. Associated moderate stenosis of the oropharyngeal airway. The remainder of the airway is widely patent. Moderately prominent upper cervical chain lymph nodes, measuring up to 2 cm in left level IIa and 1.6 cm in right level IIa. Otherwise, scattered subcentimeter lymph nodes bilaterally, none of which are pathologically enlarged or abnormally enhancing. Normal mucosal contours of the pharynx and larynx without abnormal enhancement. Normal appearance of the hyoid bone, thyroid cartilage, or cartilaginous trachea. No radiopaque foreign bodies. The atlantooccipital and atlantoaxial articulations remain well aligned. Reversal the normal cervical lordosis. Otherwise, there is anatomic alignment of the vertebral bodies and posterior elements. No evidence of acute fracture or subluxation of the cervical spine. The vertebral body heights are maintained. Mild degenerative disc disease at C5-C6 and C6-C7 with disc-osteophyte complex formation. No evidence of epidural collection. There is no prevertebral soft tissue swelling. Normal opacification of the cervical arterial and venous structures. The visualized portion of the skull base is without significant abnormalities. There is near complete opacification of the bilateral maxillary sinuses. Mild atelectasis of the right maxillary sinus. Moderate rightward nasal septal deviation with spurring. The mastoid air cells and middle ear cavities are clear. No demonstrated significant periapical odontogenic disease. CT Upper Chest: The visualized lung apices and upper mediastinum are within normal limits. CT/CT soft tissue neck w con IMPRESSION: Moderate diffuse mucosal thickening of the pharynx. Moderate heterogeneous enlargement of the adenoids and palatine tonsils without demonstrated focal lesion or collection. There is near abutment of the palatine tonsils within the midline with moderate narrowing of the oropharyngeal airway. The remainder of the airway is widely patent. Moderately prominent upper cervical chain lymph nodes, likely reactive in nature. Prominent bilateral maxillary sinus disease.
[2021-05-20 17:18] VITALS: BP 110/72; PULSE 125; RESP 20; TEMP 37.4; O2SAT 100; BMI 26.5
[2021-05-20 17:52] LABS: IDNOW Serial# 08D9AD1C; Strep A Nucleic Acid Negative (Negative)
[2021-05-20 17:58] LABS: Influenza A Negative (Negative); Influenza B2 Negative (Negative)
[2021-05-20 18:05] LABS: COVID-19 Test Negative (Negative); IDNOW Serial# 16C4AD1C
[2021-05-20 18:34] VITALS: BP 107/70; PULSE 129; RESP 18; TEMP 38; O2SAT 98
--- NOTE | 2021-05-20 18:49 | ED_ITS ---
HPI - General Adult General Chief complaint: Fever Stated complaint: fever/sore throat Time Seen by Provider: 05/20/21 18:40 Source: patient Mode of arrival: ambulatory Limitations: no limitations History of Present Illness HPI narrative: Patient comes to emergency room complaining of sore throat, fever, body aches since yesterday. Patient states that her boyfriend just return from [place], has similar symptoms. Patient denies vomiting or diarrhea. No cough. No shortness of breath or chest pain Related Data Previous Rx's Medication Instructions Recorded acetaminophen 650 mg 650 mg PO Q8H PRN #60 tab 05/28/20 tablet,extended release ibuprofen 800 mg tablet 800 mg PO Q8H PRN #60 tab 05/28/20 terconazole 0.8 % vaginal cream 1 appful VAGINAL BEDTIME 3 Days 04/29/21 #20 g Allergies Allergy/AdvReac Type Severity Reaction Status Date / Time penicillin V Allergy Unknown shortness Verified 05/20/21 17:22 of breath From Pen-Vee K Allergy Intermediate CHILDHOOD Uncoded 05/23/20 11:11 ALLERGY-EXACERBATED ASTHMA Review of Systems Review of Systems: Constitutional : No Weight loss, No Fever, No Chills, No Night Sweats, No Fatigue, No Malaise ENT/Mouth : No Hearing loss, No Ear Pain, No Nasal Congestion, No Sinus Pain, patient complaining of sore throat Eyes: No Eye Pain, No Swelling, No Redness, No Foreign Body, No Discharge, No Vision Changes Cardiovascular : No Chest Pain, No SOB, No Dyspnea on Exertion, No Orthopnea, No Edema, No Palpitations Respiratory : No Cough, No Sputum, No Wheezing, No Smoke Exposure, No Dyspnea Gastrointestinal : No Nausea, No Vomiting, No Diarrhea, No Constipation, No abdominal Pain, No Hematochezia, No Melena Genitourinary : no irregular bleeding, No Dysuria, No Urinary Frequency, No Hematuria, No Urinary Incontinence, No Urgency, No Flank Pain, No Urinary Flow Changes, No Hesitancy Musculoskeletal : No joint pain, No Myalgias, No Joint Swelling Skin : No Skin Lesions, No rash Neuro : No Weakness, No Numbness, No Paresthesias, No Loss of Consciousness, No Dizziness, No Headache Psych : No Anxiety/Panic, No Depression, No SI/HI/AH/VH, No Social Issues, Heme/Lymph: No Bruising, No Bleeding,No Lymphadenopathy Endocrine : No Polyuria, No Polydipsia, No Temperature Intolerance [facility] Past Medical History Medical History ASCUS with positive high risk HPV Depression with anxiety Genital herpes Gestational diabetes History of abnormal cervical Pap smear History of blood transfusion hemorrhage Surgical History H/O dilation and curettage History of bilateral salpingectomy Family History Family History Paternal Grandfather Kidney disease Paternal Grandmother Kidney disease Diabetes mellitus Maternal Grandmother Diabetes mellitus Breast cancer Maternal Grandfather No problems noted. Social History Social History Are you a primary client care coordinator to a significant other at home: No Do you presently have visiting nurse or other home services: No Alcohol intake: never Advance Directives: No Advance Directives Information Provided: No Patient : No Gender identity: Female Physical Exam ED Vital Signs: Vital Signs - 24 hr 05/20/21 17:18 05/20/21 18:34 05/20/21 20:15 Temperature 99.3 F 100.4 F 98.7 F Pulse Rate 125 H 129 H 119 H Respiratory Rate 20 18 18 Blood Pressure 110/72 107/70 111/70 Pulse Oximetry 100 98 100 BMI result Body Mass Index 26.5 Const Other: Appearance: Alert. Oriented X3. No acute distress. Eyes: Pupils equal, round and reactive to light. ENT: Patient has enlarged tonsils, with copious exits bilaterally, no abscess is visualized Neck: Normal inspection. Neck supple. No lymph nodes noted. No crepitus CVS: Normal heart rate and rhythm. Pulses normal. Normal S1 and S2 Respiratory: No respiratory distress. Breath sounds normal. No Wheezing. No rales Abdomen: Soft and nontender. No rigidity. No distention. Skin: Skin warm and dry. Normal skin color. Normal skin turgor. Extremities: No lower extremity edema. No Lacerations. No Rash Neuro: Oriented X 3. No motor deficit. No sensory deficit. Moving all extremities. No slurred speech. CN 2 through 12 grossly intact Psych: calm, cooperative, normal affect Course Course Course Narrative: Patient tested negative for strep throat, influenza a and COVID. Patient is tachycardic. Patient will be getting IV fluids, oral dexamethasone and viscous lidocaine for symptomatic relief. CBC, chemistry and Monospot test pending -patient tested negative for Monospot. Patient's white blood cell count is 26. 2. CT scan of the soft tissue of the neck to rule out abscess is pending. Sign-out given to Dr. Morrow Medical Decision Making Lab Data Result diagrams: 05/20/21 19:20 05/20/21 19:20 Labs: Lab Results 05/20/21 05/20/21 05/20/21 Range/Units 17:29 17:29 17:29 WBC (4.8-10.8) X10*3/uL RBC (4.20-5.50) X10*6/uL Hgb (12.0-16.0) g/dl Hct (37.0-47.0) % MCV (80.0-98.0) fL MCH (27.0-33.0) pg MCHC (31.0-35.0) g/dl RDW (11.0-16.0) % Plt Count (160-400) X10*3/uL MPV (9.4-12.3) fL Immature Gran % (Auto) (0.0-0.4) % Neut % (Auto) (45-73) % Lymph % (Auto) (20-40) % [place] % (Auto) (2-11) % Eos % (Auto) (0-4) % Baso % (Auto) (0-2) % Lymph # (Auto) (1.2-4.9) X10*3/uL [place] # (Auto) (0.1-1.2) X10*3/uL Eos # (Auto) (0.0-0.4) X10*3/uL Baso # (Auto) (0.0-0.2) X10*3/uL Abs Immat Gran (auto) (0.00-0.03) X10*3/uL Absolute Neuts (auto) (2.0-8.3) x10*3/uL Absolute Nucleated RBC (0.0-0.012) X10*3/uL Nucleated RBC % (auto) (0.0-0.2) /100WBC Smear Tech's Comments Sodium (135-145) mmol/L Potassium (3.3-5.1) mmol/L Chloride (96-108) mmol/L Carbon Dioxide (22-29) mmol/L Anion Gap (12-20) BUN (9-16) mg/dL Creatinine (0.5-1.4) mg/dL Estim Creat Clear Calc Estimated GFR Random Glucose (60-115) mg/dL Calcium (8.4-10.2) mg/dL Total Bilirubin (0.0-1.0) mg/dL Direct Bilirubin (0.0-0.5) mg/dL AST (5-31) U/L ALT (0-31) U/L Alkaline Phosphatase (39-117) U/L Total Protein (6.5-8.0) g/dL Albumin (3.5-5.0) g/dL Urine Color Urine Appearance Urine pH (5.0-8.0) Ur Specific [place] (1.005-1.025) Urine Protein (NEG-TRACE) MG/DL Urine Glucose (UA) (NEG) MG/DL Urine Ketones (NEG) MG/DL Urine Blood (NEG) Urine Nitrite (NEG) Ur Leukocyte Esterase (NEG) Urine RBC (0) /HPF Urine WBC (0-4) /HPF Ur Squamous Epith Cells /LPF Urine Bacteria /LPF Urine Test (NEGATIVE) COVID-19 (TOBIAS) Negative (Negative) COVID-19 Clin Com See Note Monoscreen (Negative) Influenza Type A (MAUDE) Negative (Negative) Influenza Type B (MAUDE) Negative (Negative) Influenza A & B Note See Note S. pyogenes GrpA MAUDE Negative (Negative) 05/20/21 05/20/21 05/20/21 Range/Units 19:20 19:20 19:20 WBC 26.2 H (4.8-10.8) X10*3/uL RBC 4.06 L (4.20-5.50) X10*6/uL Hgb 11.2 L (12.0-16.0) g/dl Hct 34.7 L (37.0-47.0) % MCV 85.5 (80.0-98.0) fL MCH 27.6 (27.0-33.0) pg MCHC 32.3 (31.0-35.0) g/dl RDW 14.6 (11.0-16.0) % Plt Count 293 D (160-400) X10*3/uL MPV 9.0 L (9.4-12.3) fL Immature Gran % (Auto) 0.8 H (0.0-0.4) % Neut % (Auto) 85.8 H (45-73) % Lymph % (Auto) 5.5 L (20-40) % [place] % (Auto) 7.7 (2-11) % Eos % (Auto) 0.0 (0-4) % Baso % (Auto) 0.2 (0-2) % Lymph # (Auto) 1.4 (1.2-4.9) X10*3/uL [place] # (Auto) 2.0 H (0.1-1.2) X10*3/uL Eos # (Auto) 0.0 (0.0-0.4) X10*3/uL Baso # (Auto) 0.1 (0.0-0.2) X10*3/uL Abs Immat Gran (auto) 0.21 H (0.00-0.03) X10*3/uL Absolute Neuts (auto) 22.5 H (2.0-8.3) x10*3/uL Absolute Nucleated RBC 0.000 (0.0-0.012) X10*3/uL Nucleated RBC % (auto) 0.0 (0.0-0.2) /100WBC Smear Tech's Comments VERIFIED Sodium 134 L (135-145) mmol/L Potassium 4.0 (3.3-5.1) mmol/L Chloride 104 (96-108) mmol/L Carbon Dioxide 21 L (22-29) mmol/L Anion Gap 13 (12-20) BUN 7 L (9-16) mg/dL Creatinine 0.64 (0.5-1.4) mg/dL Estim Creat Clear Calc 110.2 Estimated GFR > 60 Random Glucose 106 (60-115) mg/dL Calcium 9.1 D (8.4-10.2) mg/dL Total Bilirubin 0.6 (0.0-1.0) mg/dL Direct Bilirubin 0.3 (0.0-0.5) mg/dL AST 27 D (5-31) U/L ALT 39 H (0-31) U/L Alkaline Phosphatase 87 (39-117) U/L Total Protein 6.8 (6.5-8.0) g/dL Albumin 4.0 (3.5-5.0) g/dL Urine Color Urine Appearance Urine pH (5.0-8.0) Ur Specific [place] (1.005-1.025) Urine Protein (NEG-TRACE) MG/DL Urine Glucose (UA) (NEG) MG/DL Urine Ketones (NEG) MG/DL Urine Blood (NEG) Urine Nitrite (NEG) Ur Leukocyte Esterase (NEG) Urine RBC (0) /HPF Urine WBC (0-4) /HPF Ur Squamous Epith Cells /LPF Urine Bacteria /LPF Urine Test (NEGATIVE) COVID-19 (TOBIAS) (Negative) COVID-19 Clin Com Monoscreen Negative (Negative) Influenza Type A (MAUDE) (Negative) Influenza Type B (MAUDE) (Negative) Influenza A & B Note S. pyogenes GrpA MAUDE (Negative) 05/20/21 05/20/21 Range/Units 20:08 20:08 WBC (4.8-10.8) X10*3/uL RBC (4.20-5.50) X10*6/uL Hgb (12.0-16.0) g/dl Hct (37.0-47.0) % MCV (80.0-98.0) fL MCH (27.0-33.0) pg MCHC (31.0-35.0) g/dl RDW (11.0-16.0) % Plt Count (160-400) X10*3/uL MPV (9.4-12.3) fL Immature Gran % (Auto) (0.0-0.4) % Neut % (Auto) (45-73) % Lymph % (Auto) (20-40) % [place] % (Auto) (2-11) % Eos % (Auto) (0-4) % Baso % (Auto) (0-2) % Lymph # (Auto) (1.2-4.9) X10*3/uL [place] # (Auto) (0.1-1.2) X10*3/uL Eos # (Auto) (0.0-0.4) X10*3/uL Baso # (Auto) (0.0-0.2) X10*3/uL Abs Immat Gran (auto) (0.00-0.03) X10*3/uL Absolute Neuts (auto) (2.0-8.3) x10*3/uL Absolute Nucleated RBC (0.0-0.012) X10*3/uL Nucleated RBC % (auto) (0.0-0.2) /100WBC Smear Tech's Comments Sodium (135-145) mmol/L Potassium (3.3-5.1) mmol/L Chloride (96-108) mmol/L Carbon Dioxide (22-29) mmol/L Anion Gap (12-20) BUN (9-16) mg/dL Creatinine (0.5-1.4) mg/dL Estim Creat Clear Calc Estimated GFR Random Glucose (60-115) mg/dL Calcium (8.4-10.2) mg/dL Total Bilirubin (0.0-1.0) mg/dL Direct Bilirubin (0.0-0.5) mg/dL AST (5-31) U/L ALT (0-31) U/L Alkaline Phosphatase (39-117) U/L Total Protein (6.5-8.0) g/dL Albumin (3.5-5.0) g/dL Urine Color YELLOW Urine Appearance CLEAR Urine pH 6.0 (5.0-8.0) Ur Specific [place] <= 1.005 (1.005-1.025) Urine Protein NEG (NEG-TRACE) MG/DL Urine Glucose (UA) NEG (NEG) MG/DL Urine Ketones 15 (NEG) MG/DL Urine Blood TRACE (NEG) Urine Nitrite NEG (NEG) Ur Leukocyte Esterase 1+ H (NEG) Urine RBC 1-4 (0) /HPF Urine WBC 5-9 H (0-4) /HPF Ur Squamous Epith Cells 1+ /LPF Urine Bacteria 1+ /LPF Urine Test NEGATIVE (NEGATIVE) COVID-19 (TOBIAS) (Negative) COVID-19 Clin Com Monoscreen (Negative) Influenza Type A (MAUDE) (Negative) Influenza Type B (MAUDE) (Negative) Influenza A & B Note S. pyogenes GrpA MAUDE (Negative) Discharge Plan Discharge Clinical Impression: Acute sore throat, Fever Patient Disposition: Still a Patient Prescriptions: No Action ibuprofen 800 mg tablet 800 mg PO Q8H PRN (Reason: pain) Qty: 60 1RF acetaminophen 650 mg tablet extended release 650 mg PO Q8H PRN (Reason: pain) Qty: 60 1RF terconazole 0.8 % cream 1 appful vaginal BEDTIME 3 Days Qty: 20 0RF
[2021-05-20] MEDS: Acetaminophen 325 MG TABLET 650 MG PO (18:52)
[2021-05-20 19:26] LABS: Basophils Absolute Auto 0.1 X10*3/uL (0.0-0.2); Basophils Percent Auto 0.2 % (0-2); Hematocrit 34.7 % (37.0-47.0); Hemoglobin 11.2 g/dl (12.0-16.0); Imm Gran Abs Auto 0.21 X10*3/uL (0.00-0.03); Imm Gran Pct Auto 0.8 % (0.0-0.4); Lymphocytes Absolute Auto 1.4 X10*3/uL (1.2-4.9); Lymphocytes Percent Auto 5.5 % (20-40); MANUAL DIFF FLAG SCAN; Mean Corpuscular HGB Conc 32.3 g/dl (31.0-35.0); Mean Corpuscular Hemoglobin 27.6 pg (27.0-33.0); Mean Corpuscular Volume 85.5 fL (80.0-98.0); Monocytes Percent Auto 7.7 % (2-11); Neutrophils Absolute Auto 22.5 x10*3/uL (2.0-8.3); Neutrophils Percent Auto 85.8 % (45-73); Platelet Count 293 X10*3/uL (160-400); Red Blood Count 4.06 X10*6/uL (4.20-5.50); Red Cell Distribution Width 14.6 % (11.0-16.0); SCAN SMEAR FLAG 1; White Blood Count 26.2 X10*3/uL (4.8-10.8)
[2021-05-20] MEDS: 0.9 % Sodium Chloride 1,000 ML 999 ML IVCONT (19:27)
[2021-05-20 19:40] LABS: Alanine Aminotransferase 39 U/L (0-31); Alkaline Phosphatase 87 U/L (39-117); Anion Gap 13 (12-20); Aspartate Amino Transferase 27 U/L (5-31); Bilirubin Direct 0.3 mg/dL (0.0-0.5); Bilirubin Total 0.6 mg/dL (0.0-1.0); Blood Urea Nitrogen 7 mg/dL (9-16); Calcium 9.1 mg/dL (8.4-10.2); Carbon Dioxide 21 mmol/L (22-29); Chloride 104 mmol/L (96-108); Creatinine Clr Calc Pharmacy 110.2; Estimated Glomerular Filt Rate > 60; Glucose Random 106 mg/dL (60-115); Sodium 134 mmol/L (135-145); Total Protein 6.8 g/dL (6.5-8.0)
[2021-05-20] MEDS: Lidocaine HCl Viscous 2 % 15 ML SOLUTION MUCOUS MEM (19:46)
[2021-05-20] MEDS: dexAMETHasone 6 MG TABLET PO (19:46)
[2021-05-20 19:48] LABS: Monotest Negative (Negative); SLIDE REVIEW VERIFIED
[2021-05-20 20:15] VITALS: BP 111/70; PULSE 119; RESP 18; TEMP 37.1; O2SAT 100
[2021-05-20 20:15] LABS: Appearance Urine CLEAR; Color Urine YELLOW; Glucose Urine UA NEG (NEG); Leukocyte Esterase Urine 1+ (NEG); Nitrite Urine NEG (NEG); Specific Gravity - Urine <= 1.005 (1.005-1.025); UACC Culture Trigger YES; Urine Blood TRACE (NEG); Urine Ketones 15 MG/DL (NEG); Urine Protein NEG (NEG-TRACE)
[2021-05-20 20:19] LABS: UPreg QC Valid YES; Urine Pregnancy NEGATIVE (NEGATIVE)
[2021-05-20] MEDS: iohexoL 350 MG/ML 100 ML INFUS..BTL IV (20:34)
[2021-05-20 20:35] LABS: Bacteria Urine 1+ /LPF; Squamous Epithelial Cell Urine 1+ /LPF
[2021-05-20] MEDS: Clindamycin Phosphate/D5W 900 MG/50 ML PIGGYBACK 50 MG IV (22:19)
[2021-05-20] MEDS: Ketorolac Tromethamine 30 MG/ML VIAL IVPUSH (22:48)
== END 2021-05-20 23:02 | disposition home or self-care (01) ==
PROVIDERS: Emergency Provider Emergency Medicine; PCP Family Medicine
DX: R50.9 Fever, unspecified (principal); J02.9 Acute pharyngitis, unspecified; M79.10 Myalgia, unspecified site; Z20.822 Contact with and (suspected) exposure to COVID-19; Z79.899 Other long term (current) drug therapy
CPT/HCPCS: 36415; 70491; 80048; 80076; 81001; 81025; 85025; 86308; 87086; 87502; 87635; 87651; 96361; 96365; 96375; 99284; J1885; J8540; Q9967

== ENCOUNTER 2021-08-26 14:50 | Outpatient (REF) | payer MEDICAID, SELFPAY ==
[2021-09-01 01:06] LABS: HPV mRNA E6/E7 rflx Not Detected (Not Detected)
== END 2021-08-26 14:51 | disposition home or self-care (01) ==
LOC: HO.LAB 14:50
PROVIDERS: Visit Provider Obstetrics & Gynecology
DX: Z01.419 Encounter for gynecological examination (general) (routine) without abnormal findings (principal); Z11.51 Encounter for screening for human papillomavirus (HPV)
CPT/HCPCS: 87624; 88142

== ENCOUNTER 2021-11-18 09:48 | Outpatient (REF) | payer MEDICAID, SELFPAY ==
[2021-11-18 11:30] LABS: Syphilis Screen Nonreactive (Nonreactive)
[2021-11-18 11:34] LABS: HBsAGNum1 0.19 S/CO (0.00-0.99); HIV AB/AG Nonreactive (Nonreactive); HIV Num 1 0.06 S/CO (0.00-0.99); Hepatitis B Surface Antigen Negative (Negative); ~Hepatitis C Antibody Nonreactive (Nonreactive)
[2021-11-18 18:07] LABS: CT PCR NOT DETECTED (Not Detect.); NG PCR NOT DETECTED (Not Detect.)
[2021-11-19 13:26] LABS: BV Int Neg Control Negative (Negative); BV Int Pos Control Positive (Positive)
== END 2021-11-18 09:49 | disposition home or self-care (01) ==
LOC: HO.LAB 09:48
PROVIDERS: PCP Family Medicine; Visit Provider Obstetrics & Gynecology
DX: Z11.3 Encounter for screening for infections with a predominantly sexual mode of transmission (principal); Z11.4 Encounter for screening for human immunodeficiency virus [HIV]; B00.9 Herpesviral infection, unspecified
CPT/HCPCS: 86780; 86803; 87255; 87340; 87389; 87480; 87491; 87510; 87591; 87660; 99212

== ENCOUNTER → 2021-12-17 10:34 | Outpatient (BNVA) | payer MEDICAID, SELFPAY | PROVIDERS: PCP Family Medicine; Visit Provider Obstetrics & Gynecology | DX: B00.9 Herpesviral infection, unspecified (principal) | CPT/HCPCS: 99212 ==

== ENCOUNTER 2022-08-30 14:48 | Outpatient (AMB) | payer MEDICAID, SELFPAY ==
--- NOTE | 2022-08-30 14:51 | MHC.OFFVIS ---
Intake Vital Signs 08/30/22 14:52 Height 5 ft 2 in Weight 152 lb BMI 27.8 BP 116/70 Intake Visit Reasons: Annual Intake Note: no concerns Return To Factory Clerk Required: No Information Interpreted: non-clinical & clinical Binding Cutter: Binding Cutter Present (Luciana LONDONO) Accompanied by: Self / Same As Patient Allergies penicillin V Allergy (Unknown, Verified 08/30/22 14:54) shortness of breath From Pen-Vee K Allergy (Intermediate, Uncoded 08/30/22 14:54) CHILDHOOD ALLERGY-EXACERBATED ASTHMA Is last menstrual period known: Yes Last menstrual period: 08/03/22 HPI HPI Comments History of Present Illness Details Presenting for annual exam. No complaints. Last Pap/HPV was negative in 09/04, this was preceded by ascus/HPV positive, colpo biopsy GRACIELA 1 in 10/04 [facility] Medical History ASCUS with positive high risk HPV Depression with anxiety Genital herpes Gestational diabetes History of abnormal cervical Pap smear History of blood transfusion hemorrhage Surgical History H/O dilation and curettage History of bilateral salpingectomy Family History Paternal Grandfather Kidney disease Paternal Grandmother Kidney disease Diabetes mellitus Maternal Grandmother Diabetes mellitus Breast cancer Maternal Grandfather No problems noted. 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 Sexual orientation: Straight/Heterosexual Gender identity: Female Female Reproductive History Menstrual Age of Menarche: 13 Date of last menstrual period: 08/03/22 control method: permanent sterilization Total pregnancies: 5 Full term: 3 Number of Living Children: 3 Ab spontaneous: 2 Date of last pap smear: 08/27/21 Review of Systems Const All systems reviewed & are unremarkable except as noted in HPI and below Card Reports as per HPI Resp Reports as per HPI GI Reports as per HPI and Reports no additional complaints Reports as per HPI Physical Exam Vital Signs: BMI result Body Mass Index 27.8 Const General: cooperative, healthy appearing and comfortable Chest Chest palpation & inspection: normal inspection of the chest and normal palpation of entire chest wall Breast/axilla inspection: normal inspection of the breasts and normal inspection of the axillae Breast/axilla palpation: normal palpation of the breasts, normal palpation of the axillae and no axillary lymphadenopathy Resp Effort & Inspection: normal respiratory effort Auscultation: clear to auscultation bilaterally Percussion: percussion normal Cardio Palpation: normal PMI Rate: regular rate Rhythm: regular rhythm Heart sounds: no murmurs and no rubs Peripheral pulses: Peripheral pulses 2+ throughout GI Inspection: Yes normal to inspection Palpation (GI): Soft to palpation, nontender, no guarding, not rigid and No hepatosplenomegaly present Percussion: Yes normal to percussion Auscultation: normal bowel sounds Rectal Exam - Female: deferred General: Yes bladder normal to palpation External Female Exam: No lesion Speculum Exam - Vagina: normal appearance of the vagina, normal palpation, normal vaginal discharge and not erythematous Speculum Exam - Cervix: normal appearance of the cervix and normal palpation Bimanual exam- vagina & uterus: normal bimanual exam, normal palpation, uterine size normal, bladder normal to palpation, consistency normal and normal palpation Bimanual Exam- Adnexa, other: normal adnexae, no masses and no tenderness Assessment & Plan Assessment & Plan (1) Well woman exam: Comment: History of GRACIELA 1 in 2020 Code(s): Z01.419 - Encounter for gynecological examination (general) (routine) without abnormal findings Plan: Cotesting not indicated this year Counseled the patient about the recommended dietary allowance of 1000 mg of Calcium & 600 IU of vitamin D. The patient was instructed to perform monthly self-breast exams and to schedule an annual exam in a year; All questions answered and the patient verbalized understanding. Instructed the patient to schedule annual exam in a year Coding Level of Care Code Est Pt Prev Care 18-39y(18172) Diagnoses Well woman exam Z01.419
[2022-08-30 14:52] VITALS: BP 116/70; BMI 27.8
== END 2022-08-30 15:10 | disposition home or self-care (01) ==
LOC: HO.HWS 14:48
PROVIDERS: PCP Family Medicine; Visit Provider Obstetrics & Gynecology
DX: Z01.419 Encounter for gynecological examination (general) (routine) without abnormal findings (principal)
CPT/HCPCS: 99395

== ENCOUNTER → 2022-08-30 14:48 | Outpatient (BNVA) | payer MEDICAID, SELFPAY | PROVIDERS: PCP Family Medicine; Visit Provider Obstetrics & Gynecology ==

== ENCOUNTER 2023-11-03 10:12 | Outpatient (REF) | payer MEDICAID, SELFPAY ==
[2023-11-03 11:46] LABS: Estimated Average Glucose 105 mg/dL; Hemoglobin A1C 111.2802 umol/L; Hemoglobin A1c % 5.3 % (<6.0); Total Hemoglobin (HGBA1C) 3277.7755 umol/L
[2023-11-03 12:34] LABS: TSH reflex Free T4 1.28 uIU/mL (0.32-4.0)
== END 2023-11-03 10:13 | disposition home or self-care (01) ==
LOC: HO.HHCL 10:12
PROVIDERS: Visit Provider Family Medicine
DX: Z13.1 Encounter for screening for diabetes mellitus (principal); E66.3 Overweight
CPT/HCPCS: 36415; 83036; 84443

== ENCOUNTER 2024-01-18 08:25 | Outpatient (REF) | payer OTHER, SELFPAY ==
[2024-01-18 11:35] LABS: Syphilis Screen Nonreactive (Nonreactive)
[2024-01-18 11:36] LABS: HBsAGNum1 0.41 S/CO (0.00-0.99); HIV AB/AG Nonreactive (Nonreactive); HIV Num 1 0.05 S/CO (0.00-0.99); Hepatitis B Surface Antigen Negative (Negative); ~HepC Num1 0.25 S/CO (0.00-0.79); ~Hepatitis C Antibody Nonreactive (Nonreactive)
[2024-01-18 14:48] LABS: Bacterial Vaginosis PCR NEGATIVE (Negative); Candida Group PCR NOT DETECTED (Not Detect); Candida glab krusei PCR NOT DETECTED (Not Detect); Trichomonas vaginalis PCR NOT DETECTED (Not Detect)
[2024-01-18 15:13] LABS: CT PCR NOT DETECTED (Not Detect.); NG PCR NOT DETECTED (Not Detect.)
== END 2024-01-18 08:26 | disposition home or self-care (01) ==
LOC: HO.LAB 08:25
PROVIDERS: PCP Family Medicine; Visit Provider Obstetrics & Gynecology
DX: Z01.419 Encounter for gynecological examination (general) (routine) without abnormal findings (principal); Z11.3 Encounter for screening for infections with a predominantly sexual mode of transmission; Z20.2 Contact with and (suspected) exposure to infections with a predominantly sexual mode of transmission; N87.0 Mild cervical dysplasia; N63.0 Unspecified lump in unspecified breast
CPT/HCPCS: 0352U; 36415; 86780; 86803; 87340; 87389; 87491; 87591; 99395

== ENCOUNTER 2024-01-18 08:48 | Outpatient (AMB) | payer OTHER, SELFPAY ==
--- NOTE | 2024-01-18 08:44 | A.OFFVIS_ITS ---
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/DO NOT RS x2 Central Service Supply Distributor Required: Yes Central Service Supply Distributor Language: Paint Line Production Supervisor Services: Central Service Supply Distributor Present (in person) Central Service Supply Distributor Name: Luciana LONDONO Information Interpreted: non-clinical & clinical Liquor Bridge Operator: Liquor Bridge Operator Present (Luciana LONDONO) Accompanied by: Self / Same As Patient Allergies penicillin V Allergy (Unknown, Verified 01/18/24 08:48) shortness of breath From Pen-Vee K Allergy (Intermediate, Uncoded 01/18/24 08:48) CHILDHOOD ALLERGY-EXACERBATED ASTHMA Is last menstrual period known: Yes Last menstrual period: 01/07/24 HPI Comments Details: Presenting for annual exam. Complaining of bilateral breast pain. Requesting STD screen Last Pap/HPV was in 09/04 was negative, this was preceded by is biopsy proven GRACIELA 1 in 09/03 [facility] Medical History Depression with anxiety ASCUS with positive high risk HPV History of abnormal cervical Pap smear Genital herpes Gestational diabetes History of blood transfusion hemorrhage Surgical History History of bilateral salpingectomy H/O dilation and curettage Family History Paternal Grandfather Kidney disease Paternal Grandmother Kidney disease Diabetes mellitus Maternal Grandmother Diabetes mellitus Breast cancer Maternal Grandfather No problems noted. 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 Sexual orientation: Straight/Heterosexual Gender identity: Female Female Reproductive History Menstrual Age of Menarche: 13 Date of last menstrual period: 01/07/24 Total pregnancies: 5 Full term: 3 Number of Living Children: 3 Ab spontaneous: 2 Date of last pap smear: 08/27/21 Review of Systems Const All systems reviewed & are unremarkable except as noted in HPI and below Card Reports as per HPI Resp Reports as per HPI GI Reports as per HPI and Reports no additional complaints Reports as per [facility] Physical Exam Vital Signs: Last Vital Signs BP 102/60 01/18/24 08:47 BMI result Body Mass Index 28.9 Const General: cooperative, healthy appearing and comfortable Chest Chest palpation & inspection: normal inspection of the chest and normal palpation of entire chest wall Breast/axilla inspection: normal inspection of the breasts (R breast tender lump @9', 8 cm from nipple, L breast @4', 8 cm from nipple) and normal inspection of the axillae Breast/axilla palpation: normal palpation of the breasts, normal palpation of the axillae and no axillary lymphadenopathy Resp Effort & Inspection: normal respiratory effort Auscultation: clear to auscultation bilaterally Percussion: percussion normal Cardio Palpation: normal PMI Rate: regular rate Rhythm: regular rhythm Heart sounds: no murmurs and no rubs Peripheral pulses: Peripheral pulses 2+ throughout GI Inspection: Yes normal to inspection Palpation (GI): Soft to palpation, nontender, no guarding, not rigid and No hepatosplenomegaly present Percussion: Yes normal to percussion Auscultation: normal bowel sounds Rectal Exam - Female: deferred General: Yes bladder normal to palpation External Female Exam: No lesion Speculum Exam - Vagina: normal appearance of the vagina, normal palpation, normal vaginal discharge and not erythematous Speculum Exam - Cervix: normal appearance of the cervix and normal palpation Bimanual exam- vagina & uterus: normal bimanual exam, normal palpation, uterine size normal, bladder normal to palpation, consistency normal and normal palpation Bimanual Exam- Adnexa, other: normal adnexae, no masses and no tenderness Assessment & Plan Assessment & Plan (1) Well woman exam: Comment: History of GRACIELA 1 in 09/04 co testing negative Code(s): Z01.419 - Encounter for gynecological examination (general) (routine) without abnormal findings Category: Medical Plan: Cotesting done. Counseled the patient about the recommended dietary allowance of 1000 mg of Calcium & 600 IU of vitamin D. The patient was instructed to perform monthly self-breast exams and to schedule an annual exam in a year; All questions answered and the patient verbalized understanding. Instructed the patient to schedule annual exam in a year (2) Breast lump in female: Comment: R breast tender lump @9', 8 cm from nipple, L breast @4', 8 cm from nipple Code(s): N63.0 - Unspecified lump in unspecified breast Category: Medical Plan: Discussed with the patient the finding on Breast exam (bilateral breast breast lumps) .The differential diagnosis includes but not limited to lump/cyst/pre cancer/cancer or dense breast tissue. The work up includes bilateral breast US and diagnostic mammogram and referred the patient for surgical breast consult. (3) Screen for STD (sexually transmitted disease): Code(s): Z11.3 - Encounter for screening for infections with a predominantly sexual mode of transmission Category: Medical Plan: STD screening tests done includes: BV panel for trichomonas, GC/CT will send patient for serology std screening for HIV, RPR, Hep b s Ag, HepC Ab. Instructions given the patient to schedule a follow-up appointment for repeat serology screen in 6 months for possible false negatives. Orders: Orders US breast LT complete Today N63.0 - Unspecified lump in unspecified breast Hepatitis B Surface Antigen Today Z20.2 - Contact with and (suspected) exposure to infections with a predominantly sexual mode of transmission Syphilis Screen Today Z20.2 - Contact with and (suspected) exposure to infections with a predominantly sexual mode of transmission MM tomosynthesis diagnostic BI Today N63.0 - Unspecified lump in unspecified breast US breast RT complete Today N63.0 - Unspecified lump in unspecified breast Hepatitis C Antibody Today Z20.2 - Contact with and (suspected) exposure to infections with a predominantly sexual mode of transmission HIV Ab/Ag Today Z20.2 - Contact with and (suspected) exposure to infections with a predominantly sexual mode of transmission Coding Level of Care Code Est Pt Prev Care 18-39y(64132) Diagnoses Well woman exam Z01.419 Breast lump in female N63.0 Screen for STD (sexually transmitted disease) Z11.3
[2024-01-18 08:47] VITALS: BP 102/60; BMI 28.9
== END 2024-01-18 09:29 | disposition home or self-care (01) ==
PROVIDERS: PCP Family Medicine; Visit Provider Obstetrics & Gynecology
DX: Z01.419 Encounter for gynecological examination (general) (routine) without abnormal findings (principal); N63.0 Unspecified lump in unspecified breast; Z11.3 Encounter for screening for infections with a predominantly sexual mode of transmission
CPT/HCPCS: 99395

== ENCOUNTER 2024-01-18 09:33 | Outpatient (REF) | payer OTHER, SELFPAY ==
[2024-01-19 10:00] LABS: HPV 16,18/45 See PAP report
== END 2024-01-18 09:34 | disposition home or self-care (01) ==
LOC: HO.LNP 09:33
PROVIDERS: Visit Provider Obstetrics & Gynecology
DX: N87.0 Mild cervical dysplasia (principal); Z11.3 Encounter for screening for infections with a predominantly sexual mode of transmission
CPT/HCPCS: 87624; 88175

== ENCOUNTER 2024-03-02 11:17 | Outpatient (REF) | payer OTHER, SELFPAY ==
--- NOTE | ~2024-03-02 | MM_ITS ---
EXAMINATION: MM DIAGNOSTIC DIGITAL BREAST TOMOSYNTHESIS, BILATERAL Limited bilateral breast ultrasound. CLINICAL INFORMATION: Right breast tender lump in left breast lump felt by patient's physician. Patient unable to locate the exact spots today. COMPARISON: Mammography: Comparison is made with relevant prior exams. TECHNIQUE: Digital breast mammography with tomosynthesis is performed in both the craniocaudal and mediolateral oblique views along with computer-aided detection (CAD). Limited bilateral ultrasound. FINDINGS: The breasts are heterogeneously dense, which may obscure small masses (ACR BI-RADS breast composition Category c). Bilateral breast: There are no significant masses, abnormal calcifications, or other abnormalities. Targeted color Doppler ultrasound scanning in the lower outer quadrant of the left breast area of patient's palpable lump demonstrates normal fibroglandular breast tissue. Targeted color Doppler ultrasound scanning from 7-11 o'clock in the right breast area of palpable lump demonstrates normal fibronodular breast tissue. There is no sonographic abnormality. Results are provided to the patient at time of visit by the technologist. MM/MM tomosynthesis diagnostic BI IMPRESSION: No mammographic or sonographic abnormality to account for the bilateral palpable lumps. Recommend clinical evaluation and follow-up. ASSESSMENT: BI-RADS BI-RADS 1 - Negative RECOMMENDATION: 1 year F/U This patient's information was entered into a reminder system with a target due date for their next mammogram. Electronically signed by: Sarika Meza DO 03/06/2024 03:44 PM AL
== END 2024-03-02 11:18 | disposition home or self-care (01) ==
LOC: HO.MAMMO 11:17
PROVIDERS: PCP Family Medicine; Visit Provider Obstetrics & Gynecology
DX: N63.15 Unspecified lump in the right breast, overlapping quadrants (principal)
CPT/HCPCS: 77062; 77066

== ENCOUNTER → 2024-03-02 11:45 | Outpatient (BNV) | payer OTHER, SELFPAY | PROVIDERS: PCP Family Medicine; Visit Provider Internal Medicine | DX: N63.23 Unspecified lump in the left breast, lower outer quadrant (principal); N64.4 Mastodynia | CPT/HCPCS: 77062; 77066 ==

== ENCOUNTER → 2024-03-06 15:00 | Outpatient (BNV) | payer OTHER, SELFPAY | PROVIDERS: PCP Family Medicine; Visit Provider Internal Medicine | DX: N63.20 Unspecified lump in the left breast, unspecified quadrant (principal); N64.4 Mastodynia | CPT/HCPCS: 76642 ==

== ENCOUNTER 2024-03-06 15:08 | Outpatient (REF) | payer OTHER, SELFPAY ==
--- NOTE | ~2024-03-06 | US_ITS ---
EXAMINATION: MM DIAGNOSTIC DIGITAL BREAST TOMOSYNTHESIS, BILATERAL Limited bilateral breast ultrasound. CLINICAL INFORMATION: Right breast tender lump in left breast lump felt by patient's physician. Patient unable to locate the exact spots today. COMPARISON: Mammography: Comparison is made with relevant prior exams. TECHNIQUE: Digital breast mammography with tomosynthesis is performed in both the craniocaudal and mediolateral oblique views along with computer-aided detection (CAD). Limited bilateral ultrasound. FINDINGS: The breasts are heterogeneously dense, which may obscure small masses (ACR BI-RADS breast composition Category c). Bilateral breast: There are no significant masses, abnormal calcifications, or other abnormalities. Targeted color Doppler ultrasound scanning in the lower outer quadrant of the left breast area of patient's palpable lump demonstrates normal fibroglandular breast tissue. Targeted color Doppler ultrasound scanning from 7-11 o'clock in the right breast area of palpable lump demonstrates normal fibronodular breast tissue. There is no sonographic abnormality. Results are provided to the patient at time of visit by the technologist. US/US breast BI limited mamm only IMPRESSION: No mammographic or sonographic abnormality to account for the bilateral palpable lumps. Recommend clinical evaluation and follow-up. ASSESSMENT: BI-RADS BI-RADS 1 - Negative RECOMMENDATION: 1 year F/U This patient's information was entered into a reminder system with a target due date for their next mammogram. Electronically signed by: Sarika Meza DO 03/06/2024 03:44 PM AL
== END 2024-03-06 15:09 | disposition home or self-care (01) ==
LOC: HO.MAMMO 15:08
PROVIDERS: PCP Family Medicine; Visit Provider Obstetrics & Gynecology
DX: N63.0 Unspecified lump in unspecified breast (principal)
CPT/HCPCS: 76642

== ENCOUNTER 2024-03-13 15:28 | Outpatient (AMB) | payer OTHER, SELFPAY ==
--- NOTE | 2024-03-13 15:41 | A.OFFVIS_ITS ---
Intake Visit Reasons: mammo follow up Concrete Buster Operator: Concrete Buster Operator Present (Olya) Accompanied by: Self / Same As Patient Allergies penicillin V Allergy (Unknown, Verified 03/13/24 15:42) shortness of breath From Pen-Vee K Allergy (Intermediate, Uncoded 01/18/24 08:48) CHILDHOOD ALLERGY-EXACERBATED ASTHMA HPI Comments Details: Presenting for follow-up for bilateral breast pain and tender lumps identified on breast exam. Bilateral diagnostic breast mammogram and breast ultrasound was done and the results came back as BI-RADS 1. The patient is doing well breast pain-free and not feeling any lumps anymore [facility] Medical History Depression with anxiety ASCUS with positive high risk HPV History of abnormal cervical Pap smear Genital herpes Gestational diabetes History of blood transfusion hemorrhage Surgical History History of bilateral salpingectomy H/O dilation and curettage Family History Paternal Grandfather Kidney disease Paternal Grandmother Kidney disease Diabetes mellitus Maternal Grandmother Diabetes mellitus Breast cancer Maternal Grandfather No problems noted. 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 Sexual orientation: Straight/Heterosexual Gender identity: Female Female Reproductive History Menstrual Age of Menarche: 13 Physical Exam Chest Chest palpation & inspection: normal inspection of the chest Breast/axilla inspection: normal inspection of the breasts and normal inspection of the axillae Breast/axilla palpation: normal palpation of the breasts Assessment & Plan Assessment & Plan (1) Breast lump in female: Comment: Resolved Code(s): N63.0 - Unspecified lump in unspecified breast Category: Medical Plan: Discussed with the patient the results of the bilateral diagnostic breast mammogram and ultrasound and repeat breast exam showing no evidence of tenderne ss or lumps, discussed with the patient the sensitivity, specificity, false- positive false-negative rate of imaging and breast exam in detecting breast pathology. Instructions given to patient to call in case of recurrence of her breast pain and/ or lumps, nipple discharge or any other abnormality. All questions answered, the patient verbalized understanding. Coding Level of Care Code Est Pt Level 3 (76851) Diagnoses Breast lump in female N63.0
--- OUTSIDE RECORDS SUMMARY | 2024-03-13 16:25 | XMS_ITS | Clinical Summary ---
Author Organization [facility] it Address [address] [place] [address] Care Team Providers Care Sales Representative Meats Name Role Phone Unavailable Primary Care Provider Unavailabl e Surgical History Surgery Date Site/Laterality Comments OTHER SURGICAL HISTORY PROCEDURE: MS DILATION & CURETTAGE DX&/THER NONOBSTETRIC Medical History Medical History Date Comments hemorrhage DX:Postpar shoshana hemorrhage Genital herpes DX:Genital herpe s Fibromyalgia DX:Fibromyalgia Social History Tobacco Use Types Packs/Day Years Used Date Smoking Tobacco: Never Assessed Sex and Gender Information Value Date Recorded Sex Assigned at Not on file Gender Identity Not on file Sexual Orientation Not on file Obstetrics History Plan of Treatment Health Maintenance Due Date Last Done Comments DTaP,Tdap,and Td Vaccines (1 - Tdap) 2005 Hepatitis B Vaccines (1 of 3 - 19+ 3-dose series) 2005 Cervical Cancer Screening: P ap Smear 07/22/2007 COVID-19 Vaccine (2023-2 5 season) 2023 Influenza Vaccine (#1) 2023 HIB Vaccines Aged Out No longer eligi ble based on patient's age to complete this topic HPV Vaccines Aged Out No longer eligi ble based on patient's age to complete this topic Hepatitis A Vaccines Aged Out No long er eligible based on patient's age to complete this topic IPV Vaccines Aged Out No longer eligi ble based on patient's age to complete this topic MMR Vaccines Aged Out No longer eligi ble based on patient's age to complete this topic Meningococcal ACWY Vaccine Aged Out N o longer eligible based on patient's age to complete this topic Pneumococcal Vaccine: Pediat rics (0 to 5 Years) and At-Risk Patients (6 to 64 Years) Aged Out No longer eligible b ased on patient's age to complete this topic RSV Immunization Patients Un gautam 20 months Aged Out No longer eligible b ased on patient's age to complete this topic Varicella Vaccines Aged Out No longer eligible based on patient's age to complete this topic
--- OUTSIDE RECORDS SUMMARY | 2024-03-13 16:25 | XMS_ITS | Encounter Summary ---
Author Organization [employer] Address [address] [place] [address] [address] [place] [address] Care Team Providers Care Wide Piece Goods Inspector Name Role Phone Shanti Crane MD Primary Care Provider [phone] Encounter Details Date Type Department Care Team (Late st Contact Info) Description 11/19/2022 Abstract [facility] [address] [place] [address] Melissa Gallardo Social History Tobacco Use Types Packs/Day Years Used Date Smoking Tobacco: Never Smokeless Tobacco: Never Alcohol Use Standard Drinks/Week Comments Never 0 (1 standard drink = 0.6 oz pur e alcohol) Comments Unknown Sex and Gender Information Value Date Recorded Sex Assigned at Female 12/14/2021 10:17 AM EDT Legal Sex Female 10:17 AM EDT Gender Identity Female 12/14/2021 10:17 AM EDT Sexual Orientation Straight 12/14/2021 10 :17 AM EDT documented as of this encounter Plan of Treatment Not on file documented as of this encounter Procedures Procedure Name Priority Date/Time Associated Diagnosis Comments PAP/HPV Routine 08/26/2021 COLPOSCOPY Routine 09/24/2020 PAP/HPV Routine 08/25/2020 documented in this encounter Results * Pap Smear (08/26/2021) Pap Negative for intraephithelial lesion or malignancy Negative for intraephithelial lesion or malignancy, Other HPV Undetected Historical Provider HEALTH MAINTENANCE Final Result * Colposcopy (09/24/2020) Historical Provider IN CLINIC/BEDSIDE ORDERAB LES Final Result * (ABNORMAL) Pap Smear (08/25/2020) Pap Epithelial cell abnormality(A ) Negative for intraephithelial lesion or malignancy, Other Comment:ASCUS HPV Undetected Historical Provider HEALTH MAINTENANCE Final Result documented in this encounter Visit Diagnoses Not on filedocumented in this encounter Care Teams Wide Piece Goods Inspector Relationship Specialty Start Date End Date Shanti Crane MD [address] [place] [address] PCP - General Family Medicine 02/14/18 documented as of this encounter
--- OUTSIDE RECORDS SUMMARY | 2024-03-13 16:25 | XMS_ITS | Clinical Summary ---
Author Organization 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 2 Active fluticasone (Flonase) 50 MCG/ACT nasal sprayIndications:Se asonal allergic rhinitis, unspecified trigger SPRAY 2 SPRAYS INTO EACH NOSTRIL IN THE MORNING SHAKE GENTLY/PRIME BEFORE 1ST USE&CLEAN TIP/REPLACE CAP 48 mL 1 3 Active valACYclovir (Valtrex) 500 MG tablet TAKE 1 TABLET BY MOUTH TWICE A DAY FOR 3 DAYS 4 Active ibuprofen 400 MG tabletIndications:C hronic nonintractable headache, unspecified headache type,Upper back pain,Chronic low back pain, unspecified back pain laterality, unspecified whether sciatica present Take 1 tablet (400 mg) by mouth every 8 (eight) hours if needed for moderate pain, fever or headaches. 30 tablet 1 4 Active acetaminophen (Tylenol) 500 MG tabletIndications:C hronic nonintractable headache, unspecified headache type,Upper back pain,Chronic low back pain, unspecified back pain laterality, unspecified whether sciatica present Take 2 tablets (1,000 mg) by mouth every 8 (eight) hours if needed for moderate pain, fever or headaches. 30 tablet 1 4 Active cholecalciferol (D3-1000) 25 MCG (1000 UT) capsuleIndications: Vitamin D deficiency Take 1 capsule (25 mcg) by mouth Once per day. 90 capsule 1 4 Active Active Problems Problem Noted Date Diagnosed Date Headache 11/03/2023 Assessment & Plan (11/04/2023 6:12 AM EDT): - 10/07/[address] showed large polyp or retention cyst in L maxillary sinus - 03/25/[address]: No acute intracranial disease. Right maxillary sinus disease new in the interval from previous exam. Probable large polyp or cyst in the left maxillary sinus similar to 2010 exam. - multifactorial: sinus; tension; migraine; and stress-related - previously tried medications: propranolol (discontinued after a syncopal episode); amitriptyline - she has not been taking amitriptyline regularly - symptoms are manageable at this time Upper back pain 11/03/2023 Assessment & Plan (11/03/2023 9:46 AM EDT): - continue home stretching exercises - continue judicious use of acetaminophen or NSAIDs - will refer to PT Chronic lower back pain 11/03/2023 Assessment & Plan (11/03/2023 9:46 AM EDT): - continue home stretching exercises - continue judicious use of acetaminophen or NSAIDs - will refer to PT Macromastia 11/03/2023 Nasal polyp 11/03/2023 Assessment & Plan (11/04/2023 6:02 AM EDT): - 10/07/[address] showed large polyp or retention cyst in L maxillary sinus - 03/25/[address]: No acute intracranial disease. Right maxillary sinus disease new in the interval from previous exam. Probable large polyp or cyst in the left maxillary sinus similar to 2011 exam. History of cervical dysplasia 11/02/2023 Assessment & Plan (11/03/2023 4:57 AM EDT): -followed by [facility], last seen in August 2022 -08/25/20 ASCUS negative high-risk HPV -09/25/20 Colposcopy GRACIELA-I -August 2021 PAP NILM and negative high-risk HPV Fibromyalgia 04/30/2017 Overview (06/14/2022): Last Assessment & Plan: No acute symptoms. Outpatient management. Kidney stone 04/30/2017 Overview (06/14/2022): Last Assessment & Plan: As above, conservative management to be reevaluated in a.m. by the urology team Assessment & Plan (11/04/2023 6:08 AM EDT): - last kidney stone in Nvo 2018, left - s/p cystoscopy, ureteral stent in Dec 2018 and stent removal in Jan 2019. - continue adequate hydration. Vitamin D deficiency 03/13/2015 Allergic rhinitis 10/14/2013 Assessment & Plan (11/03/2023 9:46 AM EDT): - continue loratadine prn Chronic sinusitis 10/14/2013 Encounters Date Type Department Care Team Description 03/09/2024 Telephone [facility] [address] [place] [address] Princess Marroquin [place] april recall 03/06/2024 Orders Only [facility] External Provider, [facility] 03/02/2024 Orders Only [facility] External Provider, [facility] 01/18/2024 Orders Only GENERIC EXTERNAL DATA DEPARTMENT Provider, Generic External Data from Last 3 Months Immunizations Name Administration Dates Next Due DTaP 07/20/1990, 9,1986,1986,1986 Hep B, Adolescent or Pediatric 09/06/1998,1997,10/12/1997 Hib (HbOC) 07/26/1988 IPV 07/20/1990, 9,05/01/1987,1986,1986 Influenza Injectable Quadriv alant Preservative Free IIV4 MDCK 12/30/2020 Influenza injectable quadriv alent IIV4 with preservative 12/05/2014 Influenza injectable quadriv alent preservative free 12/26/2019,03/22/2018,01/24/2017,2016 Influenza, IIV3, injectable 10/14/2010 Influenza, seasonal, injecta ble, preservative free 11/03/2023 MMR 07/20/1990,10/27/1987 TD (adult), 2 Lf tetanus tox oid, preservative free, adsorbed 01/02/2009,10/10/1997 Tdap 09/27/2019,03/22/2018 Family History Medical History Relation Name Comments Breast cancer Maternal Grandmother Diabetes type II Maternal Grandmother Hypertension Maternal Grandmother Uterine cancer Maternal Grandmother Kidney disease Paternal Grandfather Relation Name Status Comments Maternal Grandmother Paternal Grandfather Social History Tobacco Use Types Packs/Day Years Used Date Smoking Tobacco: Never Smokeless Tobacco: Never Tobacco Cessation:Counseling Given: Not Answered Alcohol Use Standard Drinks/Week Comments Never 0 (1 standard drink = 0.6 oz pur e alcohol) Alcohol Answer Date Recorded Frequency of Alcohol Consumption Not on file 11/03/2023 Average Number of Drinks Not on file 024 Frequency of Binge Drinking Not on file 10/15 Score 0 11/03/2023 Depression Answer Date Recorded Patient Health Questionnaire-9 Score 0 11/03/2023 Patient Health Questionnaire-9 Score 0 11/03/2023 Last PHQ-9: Questionnaire Data Not on file 0 11/03/2023 Housing Stability Answer Date Recorded What is your housing situation today? Not on bernardo e 11/03/[address] you li ve. Do you have problems with any of the following? None of the above 11/03/2023 Food Insecurity Answer Date Recorded Within the past 12 months, y ou worried that your food would run out before you got money to buy more: Never True 11/03/2023 Within the past 12 months,th e food you bought just didn't last and you didn't have enough money to get more: Never True Transportation Answer Date Recorded In the past 12 months, has l ack of transportation kept you from medical appts, meetings, work or from getting things needed for daily living? No 11/03/2023 Utilities Answer Date Recorded In the past 12 months, has t he electric, gas, oil or water company threatened to shut off services in your home? No 11/03/2023 Depression Answer Date Recorded Patient Health Questionnaire-2 Score 0 11/03/2023 Internet Access Answer Date Recorded Internet Access Q1 Yes 11/03/2023 Internet Access Q2 Not on file 11/03/2023 Comments Unknown Sex and Gender Information Value Date Recorded Sex Assigned at Female 12/14/2021 10:17 AM EDT Legal Sex Female 10:17 AM EDT Gender Identity Female 12/14/2021 10:17 AM EDT Sexual Orientation Straight 12/14/2021 10 :17 AM EDT Last Filed Vital Signs Vital Sign Reading Time Taken Comments Blood Pressure 108/76 11/03/2023 9:22 AM EDT Pulse 78 11/03/2023 9:22 AM EDT Temperature 36.3 ??C (97.3 ??F) 11/03/2023 9:22 AM ED T Respiratory Rate 17 11/03/2023 9:22 AM EDT Oxygen Saturation 99% 11/03/2023 9:22 AM EDT Inhaled Oxygen Concentration - - Weight 68.5 kg (151 lb) 11/03/2023 9:22 AM EDT Height 157.6 cm (5' 2.03 ) 11/03/2023 9:22 AM ED T Body Mass Index 27.59 11/03/2023 9:22 AM EDT Plan of Treatment Health Maintenance Due Date Last Done Comments SDOH Screening 1985 COVID-19 Vaccine ( season) 2023 01/17/2021, 06/16/2020, 05/19/2020 Cervical Cancer Screening 08/26/2024 HPV/Cotest 08/26/2024 08/26/2021, 08/14, 08/26/2021, Additional history exists Pap Smear 08/26/2024 08/26/2021, 08/25/2020 Alcohol/Substance Use Screening 11/02/2024 11/03/2023 Depression Screening 11/02/2024 11/03/2023, 11/03/19 24 Family Planning (PISQ) 11/03/2024 11/04/2023 Tobacco Screening 11/03/2024 11/04/2023 DTaP/Tdap/Td Vaccines (7 - Td or Tdap) 09/26/2029 09/27/2019, 03/22/2018, 01/02/2009, Additional history exists Zoster Vaccines (1 of 2) 2036 RSV Patients and Patients Aged 60 years or older (1 - 1-dose 75+ series) 2061 HIB Vaccines Completed 07/26/1988 IPV Vaccines Completed 07/20/1990, 08/1988, 05/01/1987, Additional history exists Hepatitis B Vaccines Completed 09/06/1998, 11/18/1997, 10/12/1997 Influenza Vaccine Completed 11/03/2023, , 12/26/2019, Additional history exists HIV Screening Completed 01/18/2024, 06/2021, 05/04/2021, Additional history exists Hepatitis C Screening Completed 01/18/2024 , 11/18/2021, 05/04/2021, Additional history exists HPV Vaccines Aged Out No longer eligi ble based on patient's age to complete this topic Hepatitis A Vaccines Aged Out No long er eligible based on patient's age to complete this topic Meningococcal Vaccine Aged Out No edison antonina eligible based on patient's age to complete this topic Pneumococcal Vaccine: Pediatrics (0 to 5 Years) and At-Risk Patients (6 to 64 Years) Aged Out No longer eligible based on patient's age to complete this topic RSV under 20 months Aged Out No longe r eligible based on patient's age to complete this topic Rotavirus Vaccines Aged Out No longer eligible based on patient's age to complete this topic Procedures Procedure Name Priority Date/Time Associated Diagnosis Comments BI US BREAST LIMITED BILATERAL Routine 03/06/2024 3:12 PM EST BI MAMMOGRAM DIAGNOSTIC TOMOSYNTHESIS BILATERAL Routine 03/02/2024 11:30 AM EST HEPATITIS B SURFACE ANTIGEN, EIA Routine 01/18/2024 9:23 AM EST HIV 1/2 ANTIGEN/ANTIBODY, FOURTH GENERATION W/RFL Routine 01/18/2024 9:23 AM EST HEPATITIS C ANTIBODY Routine 01/18/2024 9:23 AM EST SYPHILIS SCREEN Routine 01/18/2024 9:23 AM EST CHLAMYDIA/N. GONORRHOEAE RNA, TMA, UROGENITAL Routine 01/18/2024 8:25 AM EST BACTERIAL VAGINOSIS PANEL Routine 01/18/2024 8:25 AM EST HM PAP/HPV Routine 08/26/2021 from Last 3 Months or Most Recently Relevant to Health Maintenance Results * BI US Breast Limited Bilateral (03/06/2024 3:12 PM EST) Anatomical Region Laterality Modality Breast Bilateral Ultrasound 03/06/2024 3:12 PM EST Narrative 03/06/2024 3:47 PM EST ? [facility] [place] ? [address] ?[place] [address] ? Ultrasound Report ? Signed ? Patient: Leon,Cata ?MR#: [id number] ?? 90 ? : 1985 ?Acct:[id number] ? Age/Sex: 38 / F ?ADM Date: 03/06/24 ? Loc: HO.MAMMO ? Attending Dr: Ho Aguayo MD ? Ordering Physician: Ho Aguayo MD ?? Date of Service: 03/06/24 ?? Procedure(s): US breast BI limited mamm only ?? Accession Number(s): [id number] ? cc: Shanti Crane MD; Ho Aguayo MD ? EXAMINATION: ?? MM DIAGNOSTIC DIGITAL BREAST TOMOSYNTHESIS, BILATERAL ? Limited bilateral breast ultrasound. ? CLINICAL INFORMATION: ? Right breast tender lump in left breast lump felt by patient's ?? physician. Patient unable to locate the exact spots today. ? COMPARISON: ?? Mammography: Comparison is made with relevant prior exams. ? TECHNIQUE: ?? Digital breast mammography with tomosynthesis is performed in both the ?? craniocaudal and mediolateral oblique views along with computer-aided ?? detection (CAD). ?? Limited bilateral ultrasound. ? FINDINGS: ?? The breasts are heterogeneously dense, which may obscure small masses ?? (ACR BI-RADS breast composition Category c). ?? Bilateral breast: ?? There are no significant masses, abnormal calcifications, or other ?? abnormalities. ? Targeted color Doppler ultrasound scanning in the lower outer quadrant ?? of the left breast area of patient's palpable lump demonstrates normal ?? fibroglandular breast tissue. ? Targeted color Doppler ultrasound ??scanning from 7-11 o'clock in the ?? right breast area of palpable lump demonstrates normal fibronodular ?? breast tissue. There is no sonographic abnormality. ? Results are provided to the patient at time of visit by the ?? technologist. ? US/US breast BI limited mamm only ?? IMPRESSION: ?? No mammographic or sonographic abnormality to account for the bilateral ?? palpable lumps. Recommend clinical evaluation and follow-up. ? ASSESSMENT: ? BI-RADS BI-RADS 1 - Negative ? RECOMMENDATION: ?? 1 year F/U ? This patient's information was entered into a reminder system with a ?? target due date for their next mammogram. ? Electronically signed by: ??Sarika Meza DO ??03/06/2024 03:44 PM EST ? Dictated By: ?Sarika Meza DO ? Signed By: ?<Electronically signed by Sarika Meza, DO in OV> ? 03/06/24 1544 ? DD/ 1512 ? TD/TT: 03/06/24 1538 ? Boarding Specialist: ? Procedure Note Kamini, Image - 03/06/2024 [place] [facility] [address] [place] [address] Ultrasound Report Signed Patient: Wei Leon#: [id number] 90 : 1985Acct:[id number] Age/Sex: 38 / FADM Date: 03/06/24 Loc: [facility] Attending Dr: Ho Aguayo MD Ordering Physician: Ho Aguayo MD Date of Service: 03/06/24 Procedure(s): US breast BI limited mamm only Accession Number(s): [id number] cc: Shanti Crane MD; Ho Aguayo MD EXAMINATION: MM DIAGNOSTIC DIGITAL BREAST TOMOSYNTHESIS, BILATERAL Limited bilateral breast ultrasound. CLINICAL INFORMATION: Right breast tender lump in left breast lump felt by patient's physician. Patient unable to locate the exact spots today. COMPARISON: Mammography: Comparison is made with relevant prior exams. TECHNIQUE: Digital breast mammography with tomosynthesis is performed in both the craniocaudal and mediolateral oblique views along with computer-aided detection (CAD). Limited bilateral ultrasound. FINDINGS: The breasts are heterogeneously dense, which may obscure small masses (ACR BI-RADS breast composition Category c). Bilateral breast: There are no significant masses, abnormal calcifications, or other abnormalities. Targeted color Doppler ultrasound scanning in the lower outer quadrant of the left breast area of patient's palpable lump demonstrates normal fibroglandular breast tissue. Targeted color Doppler ultrasound scanning from 7-11 o'clock in the right breast area of palpable lump demonstrates normal fibronodular breast tissue. There is no sonographic abnormality. Results are provided to the patient at time of visit by the technologist. US/US breast BI limited mamm only IMPRESSION: No mammographic or sonographic abnormality to account for the bilateral palpable lumps. Recommend clinical evaluation and follow-up. ASSESSMENT: BI-RADS BI-RADS 1 - Negative RECOMMENDATION: 1 year F/U This patient's information was entered into a reminder system with a target due date for their next mammogram. Electronically signed by: Sarika Meza DO 03/06/2024 03:44 PM EST Dictated By: Sarika Meza DO Signed By: <Electronically signed by Sarika Meza DO in OV> 03/06/24 1544 DD/ 1512 TD/TT: 03/06/24 1538 Boarding Specialist: [facility] External Provider IMG US PROCEDURES Final Result * BI Mammogram Diagnostic Tomosynthesis Bilateral (03/02/2024 11:30 AM EST) Anatomical Region Laterality Modality Breast Bilateral Mammography 03/02/2024 11:3 0 AM EST Narrative 03/06/2024 3:47 PM EST ? [facility] ? [address] ?[place] [address] ? Mammography Report ? Signed ? Patient: Leon,Cata ?MR#: [id number] ?? 90 ? : 1985 ?Acct:[id number] ? Age/Sex: 38 / F ?ADM Date: 03/02/24 ? Loc: HO.MAMMO ? Attending Dr: Ho Aguayo MD ? Ordering Physician: Ho Aguayo MD ?Results: 1Negativ ?? e ? Date of Service: 03/02/24 ?Follow Up: 1 Year From Orig ?? inal Mammogram ? Procedure(s): MM tomosynthesis diagnostic BI ?? Accession Number(s): [id number] ? cc: Shanti Crane MD; Ho Aguayo MD ? EXAMINATION: ?? MM DIAGNOSTIC DIGITAL BREAST TOMOSYNTHESIS, BILATERAL ? Limited bilateral breast ultrasound. ? CLINICAL INFORMATION: ? Right breast tender lump in left breast lump felt by patient's ?? physician. Patient unable to locate the exact spots today. ? COMPARISON: ?? Mammography: Comparison is made with relevant prior exams. ? TECHNIQUE: ?? Digital breast mammography with tomosynthesis is performed in both the ?? craniocaudal and mediolateral oblique views along with computer-aided ?? detection (CAD). ?? Limited bilateral ultrasound. ? FINDINGS: ?? The breasts are heterogeneously dense, which may obscure small masses ?? (ACR BI-RADS breast composition Category c). ?? Bilateral breast: ?? There are no significant masses, abnormal calcifications, or other ?? abnormalities. ? Targeted color Doppler ultrasound scanning in the lower outer quadrant ?? of the left breast area of patient's palpable lump demonstrates normal ?? fibroglandular breast tissue. ? Targeted color Doppler ultrasound ??scanning from 7-11 o'clock in the ?? right breast area of palpable lump demonstrates normal fibronodular ?? breast tissue. There is no sonographic abnormality. ? Results are provided to the patient at time of visit by the ?? technologist. ? MM/MM tomosynthesis diagnostic BI ?? IMPRESSION: ?? No mammographic or sonographic abnormality to account for the bilateral ?? palpable lumps. Recommend clinical evaluation and follow-up. ? ASSESSMENT: ? BI-RADS BI-RADS 1 - Negative ? RECOMMENDATION: ?? 1 year F/U ? This patient's information was entered into a reminder system with a ?? target due date for their next mammogram. ? Electronically signed by: ??Sarika Meza DO ??03/06/2024 03:44 PM EST ?? RP ? Dictated By: ?Sarika Meza DO ? Signed By: ?<Electronically signed by Sarika Meza, DO in OV> ? 03/06/24 1544 ? DD/ 1130 ? TD/TT: 03/02/24 1201 ? Boarding Specialist: ? Procedure Note Donharsh, Image - 03/06/2024 [place] [facility] [address] [place] [address] Mammography Report Signed Patient: Wei Leon#: [id number] 90 : 1985Acct:[id number] Age/Sex: 38 / FADM Date: 03/02/24 Loc: [facility] Attending Dr: Ho Aguayo MD Ordering Physician: Ho Aguayoesults: 1Negativ e Date of Service: 03/02/24Follow Up: 1 Year From Orig inal Mammogram Procedure(s): MM tomosynthesis diagnostic BI Accession Number(s): [id number] cc: Shanti Crane MD; Ho Aguayo MD EXAMINATION: MM DIAGNOSTIC DIGITAL BREAST TOMOSYNTHESIS, BILATERAL Limited bilateral breast ultrasound. CLINICAL INFORMATION: Right breast tender lump in left breast lump felt by patient's physician. Patient unable to locate the exact spots today. COMPARISON: Mammography: Comparison is made with relevant prior exams. TECHNIQUE: Digital breast mammography with tomosynthesis is performed in both the craniocaudal and mediolateral oblique views along with computer-aided detection (CAD). Limited bilateral ultrasound. FINDINGS: The breasts are heterogeneously dense, which may obscure small masses (ACR BI-RADS breast composition Category c). Bilateral breast: There are no significant masses, abnormal calcifications, or other abnormalities. Targeted color Doppler ultrasound scanning in the lower outer quadrant of the left breast area of patient's palpable lump demonstrates normal fibroglandular breast tissue. Targeted color Doppler ultrasound scanning from 7-11 o'clock in the right breast area of palpable lump demonstrates normal fibronodular breast tissue. There is no sonographic abnormality. Results are provided to the patient at time of visit by the technologist. MM/MM tomosynthesis diagnostic BI IMPRESSION: No mammographic or sonographic abnormality to account for the bilateral palpable lumps. Recommend clinical evaluation and follow-up. ASSESSMENT: BI-RADS BI-RADS 1 - Negative RECOMMENDATION: 1 year F/U This patient's information was entered into a reminder system with a target due date for their next mammogram. Electronically signed by: Sarika Meza DO 03/06/2024 03:44 PM EST Dictated By: Sarika Meza DO Signed By: <Electronically signed by Sarika Meza DO in OV> 03/06/24 1544 DD/ 1130 TD/TT: 03/02/24 1201 Boarding Specialist: [facility] External Provider IMG BI PROCEDURES Final Result * Syphilis Screen (01/18/2024 9:23 AM EST) Syphilis Screen Nonreactive Nonreactive [facility] 01/18/2024 9:23 AM EST 01/18/2024 9:23 AM EST Generic External Data Provider LAB BLOOD ORDERAB LES Final Result Performing Organization Address [facility] Co de Phone Number [facility] [address] [place] [phone] * Hepatitis C Ab (01/18/2024 9:23 AM EST) Hepatitis C Antibody Nonreactive Nonreactive [facility] Comment:Antibodies to HCV no t detected; does not exclude early acuteHCV infection. 01/18/2024 9:23 AM EST 01/18/2024 9:23 AM EST Generic External Data Provider LAB BLOOD ORDERAB LES Final Result Performing Organization Address [facility] Phone Number [facility] [address] [place] [phone] * Hepatitis B surface antigen, EIA (01/18/2024 9:23 AM EST) Hepatitis B Surface Ag Negative Negative [facility] 01/18/2024 9:23 AM EST 01/18/2024 9:23 AM EST Generic External Data Provider LAB BLOOD ORDERAB LES Final Result Performing Organization Address [facility] Phone Number [facility] [address] [place] [phone] * HIV-1/2 Antigen and Antibodies, Fourth Generation, with Reflexes (01/18/2024 9:23 AM EST) HIV AB/AG Nonreactive Nonreactive [facility] Comment:HIV-1 p24 Ag and/or HIV-1/HIV-2 Ab not detected.A test result that is nonreactive does not exclude thepossibility of exposure to or infection with HIV-1 and/orHIV-2. Nonreactive results in this assay for individualswith prior exposure to HIV-1 and/or HIV-2 may be due toantigen and antibody levels that are below the limit ofdetection of this assay.The [employer] HIV Ag/Ab Combo assay result andsupplemental assay results should be interpreted inconjunction with the patient's clinical presentation,history and other laboratory results. If the results areinconsistent with clinical evidence, additional testing issuggested to confirm the result. 01/18/2024 9:23 AM EST 01/18/2024 9:23 AM EST Generic External Data Provider LAB BLOOD ORDERAB LES Final Result Performing Organization Address [facility] Co de Phone Number [facility] [address] [place] [phone] * Bacterial Vaginosis (01/18/2024 8:25 AM EST) Pathologist [facility] TRICHOMONAS VAGINALIS DETECTION BY PCR NOT DETECTED Not Detect [facility] BACTERIAL VAGINOSIS DETECTION BY PCR NEGATIVE Negative [facility] Comment:The BV organism targ ets of the Xpert Xpress MVP test can becommensal in women; Xpert Xpress MVP positive results forbacterial vaginosis should be considered in conjunction withother clinical and patient information to determine thedisease status. Organisms that are not detected by the XpertXpress MVP test have also been reported to be associatedwith BV and aerobic vaginitis.The Xpert Xpress MVP test performance has not been evaluatedin patients under the age of 14. CORINA GROUP DETECTION BY PCR NOT DETECTED Not Detect [facility] Corina glab krusei PCR NOT DETECTED Not Detect [facility] 01/18/2024 8:25 AM EST 01/18/2024 1:25 PM EST Generic External Data Provider LAB MICROBIOLOGY - GENERAL ORDERABLES Final Result Performing Organization Address [facility] Co de Phone Number [facility] [address] [place] [phone] * Chlamydia/N. Gonorrhoeae RNA, TMA, Urogenitial (01/18/2024 8:25 AM EST) CT PCR NOT DETECTED Not Detect. [facility] Comment:A not detected test result does not exclude the possibilityof infection because test results can be affected byimproper specimen collection, concurrent antibiotic therapy,or the number of organisms in the specimen which may bebelow the sensitivity of the test. As with many diagnostictests, results from the Xpert CT/NG assay should beinterpreted in conjunction with other laboratory andclinical data available to the clinician.Xpert CT/NG performance has not been evaluated in patientsless than 14 years of age. The assay should not be used forthe evaluationof suspected sexual abuse or for other medico-legalindications. Additional testing is recommended in anycircumstance when false positive or false negative resultscould lead to adverse medical, social or psychologicalconsequences. NG PCR NOT DETECTED Not Detect. [facility] Comment:A not detected test result does not exclude the possibilityof infection because test results can be affected byimproper specimen collection, concurrent antibiotic therapy,or the number of organisms in the specimen which may bebelow the sensitivity of the test. As with many diagnostictests, results from the Xpert CT/NG assay should beinterpreted in conjunction with other laboratory andclinical data available to the clinician.Xpert CT/NG performance has not been evaluated in patientsless than 14 years of age. The assay should not be used forthe evaluationof suspected sexual abuse or for other medico-legalindications. Additional testing is recommended in anycircumstance when false positive or false negative resultscould lead to adverse medical, social or psychologicalconsequences. 01/18/2024 8:25 AM EST 01/18/2024 1:25 PM EST Narrative [facility] - 01/18/2024 3:13 PM EST Vaginal us Generic External Data Provider LAB MICROBIOLOGY - GENERAL ORDERABLES Final Result [facility] [address] [place] [address] [phone] * Hm Pap Smear (08/26/2021) Pap Negative for intraephithelial lesion or malignancy Negative for intraephithelial lesion or malignancy, Other HPV Undetected Historical Provider HEALTH MAINTENANCE Final Result from Last 3 Months or Most Recently Relevant to Health Maintenance Insurance HSN PARTIAL Care Teams Licensed Massage Practitioner Relationship Specialty Start Date End Date Shanti Crane MD [address] [place] [phone] PCP - General Family Medicine 02/14/18
--- OUTSIDE RECORDS SUMMARY | 2024-03-13 16:25 | XMS_ITS | Encounter Summary ---
Author Organization [employer] Address [address] [facility] 7t [place] [address] Care Team Providers Care Marine Service Station Attendant Name Role Phone Shanti Crane MD Primary Care Provider Reason for Visit * Reason Onset Date Comments april recall 03/09/2024 Encounter Details Date Type Department Care Team (Late st Contact Info) Description 03/09/2024 Telephone [facility] [address] [place] [address] Princess Marroquin [place] april recall Social History Tobacco Use Types Packs/Day Years [...] AM EDT documented as of this encounter Miscellaneous Notes * Telephone Encounter - Princess Marroquin MA - 03/09/2024 10:25 AM EST .DORITA called the patient to schedule a visit and no answer. Message left to call back and schedule. (April recall RV headache / back pain. ) documented in this encounter Plan of Treatment Not on file documented as of this encounter Visit Diagnoses Not on filedocumented in this encounter Additional Health Concerns Assessment Noted Time PHQ-9 Depression Total Score: 0 11/03/19 24 9:20 AM EDT documented as of this encounter Care Teams Marine Service Station Attendant Relationship Specialty Start Date End Date Shanti Crane MD [address] [place] [phone] PCP - General Family Medicine 02/14/18 documented as of this encounter
--- OUTSIDE RECORDS SUMMARY | 2024-03-13 16:25 | XMS_ITS | Encounter Summary ---
Author Organization [employer] Address [address] [facility] 7t [place] [address] Care Team Providers Care Crew Team Member Name Role Phone Shanti Crane MD Primary Care Provider [phone] Encounter Details Date Type Department Care Team (Late st Contact Info) Description 03/02/2024 Orders Only [facility] External Provider, [facility] Social History Tobacco Use Types Packs/Day Years [...] Name Priority Date/Time Associated Diagnosis Comments BI MAMMOGRAM DIAGNOSTIC TOMOSYNTHESIS BILATERAL Routine 03/02/2024 11:30 AM EST documented in this encounter Results * BI Mammogram Diagnostic Tomosynthesis Bilateral (03/02/2024 11:30 AM EST) Anatomical Region Laterality Modality Breast Bilateral Mammography 03/02/2024 11:3 0 AM EST Narrative 03/06/2024 3:47 PM EST ? [facility] [place] ? [address] ?[place] [address] ? Mammography Report ? Signed ? Patient: Leon,Cata ?MR#: [id number] ?? 90 ? : 1985 ?Acct:[id number] ? Age/Sex: 38 / F ?ADM Date: 01/17/25 ? Loc: HO.MAMMO ? Attending Dr: Ho Aguayo MD ? Ordering Physician: Ho Aguayo MD ?Results: 1Negativ ?? e ? Date of Service: 03/02/24 ?Follow Up: 1 Year From Orig ?? inal Mammogram ? Procedure(s): MM tomosynthesis diagnostic BI ?? Accession Number(s): [id number] ? cc: Shanti Crane MD; Ho Aguayo [...] DD/ 1130 ? TD/TT: 03/02/24 1201 ? Family Medicine Physician Assistant: ? Procedure Note Donotpipeinterpreter, Image - 03/06/2024 [facility] [address] [place] [address] Mammography Report Signed Patient: Wei Leon#: [id number] 90 : 1985Acct:[id number] Age/Sex: 38 / FADM Date: 03/02/24 Loc: [place] Attending Dr: Ho Aguayo MD Ordering Physician: Ho Aguayo MDResults: 1Negativ e Date of Service: 03/02/24Follow Up: 1 Year From Orig ina Mammogram Procedure(s): MM tomosynthesis diagnostic BI Accession Number(s): [id number] cc: Shanti Crane MD; Ho Aguayo MD [...] by: Sarika Meza DO 03/06/2024 03:44 PM [facility] Dictated By: Sarika Meza DO Signed By: <Electronically signed by Sarika Meza DO in OV> 03/06/24 1544 DD/ 1130 TD/TT: 03/02/24 1201 Family Medicine Physician Assistant: [facility] External Provider IMG BI PROCEDURES Final Result documented in this encounter Visit Diagnoses Not on filedocumented in this encounter Additional Health Concerns Assessment Noted Time PHQ-9 Depression Total Score: 0 11/03/19 24 9:20 AM EDT documented as of this encounter Care Teams Crew Team Member Relationship Specialty Start Date End Date Shanti Crane MD [address] [place] [address] PCP - General Family Medicine 02/14/18 documented as of this encounter
--- OUTSIDE RECORDS SUMMARY | 2024-03-13 16:25 | XMS_ITS | Encounter Summary ---
Author Organization [employer] Address [address] [facility] 7t [place] [address] Care Team Providers Care Building Manager Name Role Phone Shanti Crane MD Primary Care Provider [phone] Encounter Details Date Type Department Care Team (Late st Contact Info) Description 03/06/2024 Orders Only [facility] External Provider, [facility] Social History Tobacco Use Types Packs/Day [...] LIMITED BILATERAL Routine 03/06/2024 3:12 PM EST documented in this encounter Results * BI US Breast Limited Bilateral (03/06/2024 3:12 PM EST) Anatomical Region Laterality Modality Breast Bilateral Ultrasound 03/06/2024 3:12 PM EST Narrative 03/06/2024 3:47 PM EST ? [facility] [place] ? [address] ?[place] [address] ? Ultrasound Report ? Signed ? Patient: Cata Leon ?MR#: [id number] ?? 90 ? : 1985 ?Acct:[id number] ? Age/Sex: 38 / F ?ADM Date: 03/06/24 ? Loc: HO.MAMMO ? Attending Dr: Ho Aguayo MD ? Ordering Physician: Ho Aguayo MD ?? Date of Service: 03/06/24 ?? Procedure(s): US breast BI limited mamm only ?? Accession Number(s): [id number] ? cc: Shanti Crane MD; Ho Aguayo [...] DD/ 1512 ? TD/TT: 03/06/24 1538 ? Dust Puller: ? Procedure Note Radha Suárez - 03/06/2024 [facility] [address] [place] [address] Dr. [place], [place] [address] Ultrasound Report Signed Patient: Shruti LeonStephen#: [id number] 90 : 1985Acct:[id number] Age/Sex: 38 / FADM Date: 03/06/24 Loc: JAN[place] Attending Dr: Ho Aguayo MD Ordering Physician: Ho Aguayo MD Date of Service: 03/06/24 Procedure(s): US breast BI limited mamm only Accession Number(s): [id number] cc: Shanti Crane MD; Ho Aguayo MD [...] by: Sarika Meza DO 03/06/2024 03:44 PM [facility] Dictated By: Sarika Meza DO Signed By: <Electronically signed by Sarika Meza DO in OV> 03/06/24 1544 DD/ 1512 TD/TT: 03/06/24 1538 Dust Puller: [facility] External Provider IMG US PROCEDURES Final Result documented in this encounter Visit Diagnoses Not on filedocumented in this encounter Additional Health Concerns Assessment Noted Time PHQ-9 Depression Total Score: 0 11/03/19 24 9:20 AM EDT documented as of this encounter Care Teams Building Manager Relationship Specialty Start Date End Date Shanti Crane MD [address] [place] [address] PCP - General Family Medicine 02/14/18 documented as of this encounter
== END 2024-03-14 08:15 | disposition home or self-care (01) ==
LOC: HO.HWS 15:28
PROVIDERS: PCP Family Medicine; Visit Provider Obstetrics & Gynecology
DX: N63.0 Unspecified lump in unspecified breast (principal)
CPT/HCPCS: 99213

== ENCOUNTER → 2024-03-13 15:28 | Outpatient (BNVA) | payer OTHER, SELFPAY | PROVIDERS: PCP Family Medicine; Visit Provider Obstetrics & Gynecology | DX: N63.0 Unspecified lump in unspecified breast (principal) | CPT/HCPCS: 99212 ==

== ENCOUNTER 2024-04-12 18:47 | Emergency (ER) | payer OTHER, SELFPAY ==
[2024-04-12 19:05] VITALS: BP 113/75; PULSE 107; RESP 16; TEMP 37.2; O2SAT 96; BMI 26.9
--- NOTE | 2024-04-12 19:12 | ED.GENADULT ---
HPI - General Adult General Chief complaint: Skin/Abscess/Foreign Body Stated complaint: Rash both arms Time Seen by Provider: 04/12/24 20:43 Source: patient Mode of arrival: ambulatory Limitations: no limitations History of Present Illness ED Provider: Scott Oliver HPI narrative: 38 yold female presents to the ED for itchy rash arm for one week. patient denies any lip swelling, tongue swelling, coughing, chest pain, shrotness of breath, fever, or chills. Patient denies any new meds, cosmetics, foods, and detergents Related Data Previous Rx's ?Medication ?Instructions ?Recorded valacyclovir 500 mg tablet 500 mg PO BID 3 days #6 tabs 11/17/23 diphenhydramine HCl 25 mg capsule 25 mg PO TID PRN allergic reaction 04/12/24 (Benadryl) 7 days #21 caps famotidine 40 mg tablet (Pepcid) 40 mg PO DAILY 7 days #7 tabs 04/12/24 prednisone 20 mg tablet 40 mg (2 x 20 mg) PO DAILY 5 days 04/12/24 #10 tabs Allergies Allergy/AdvReac Type Severity Reaction Status Date / Time penicillin V Allergy Unknown shortness Verified 04/12/24 19:07 of breath From Pen-Vee K Allergy Intermediate CHILDHOOD Uncoded 04/12/24 19:07 ALLERGY-EXACERBATED ASTHMA Review of Systems Review of Systems: bilateral itchy arms Yes all other systems are reviewed and are negative PMFSH Past Medical History Medical History Depression with anxiety ASCUS with positive high risk HPV History of abnormal cervical Pap smear Genital herpes Gestational diabetes History of blood transfusion hemorrhage Surgical History History of bilateral salpingectomy H/O dilation and curettage Family History Family History Paternal Grandfather Kidney disease Paternal Grandmother Kidney disease Diabetes mellitus Maternal Grandmother Diabetes mellitus Breast cancer Maternal Grandfather No problems noted. Social History Social History Household Members: Children Housing: House Are you a primary professional healthcare representative to a significant other at home: No Do you presently have visiting nurse or other home services: No Alcohol intake: never Patient Tobacco Use Status: Never used Tobacco Use of substances other than those prescribed or required for medical reasons: No Any prior treatment program specific to substance use: No Advance Directives: No Advance Directives Information Provided: Yes Do you have a plan to hurt others: No Plan Patient : No Current occupational status: employed 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 Sexual orientation: Straight/Heterosexual Gender identity: Female Physical Exam ED Vital Signs: Vital Signs - 24 hr 04/12/24 19:05 04/12/24 21:12 Temperature 99.0 F 99.0 F Pulse Rate 107 H 107 H Respiratory Rate 16 16 Blood Pressure 113/75 113/75 Pulse Oximetry 96 96 Oxygen Delivery Method Room Air Room Air BMI result Body Mass Index 26.9 Const General: cooperative, healthy appearing, comfortable, no acute distress, well developed, alert, awake and Physically active Orientation/consciousness: patient oriented x3 HENMT Other: negative lip swelling, tongue swelling, drooling, or change in voice. uvula is midline. Head: Yes normal to inspection, Yes No palpable skull fracture present, Yes normocephalic, Yes atraumatic and No abrasion Throat: Yes posterior oropharynx normal, Yes tonsils normal and Yes uvula midline Eyes General: appearance normal, both eyes and all related structures Neck Neck: Yes normal visual inspection, Yes full ROM, Yes no lymphadenopathy, Yes no meningeal signs, Yes trachea midline, Yes supple, No anterior neck swelling, No bilateral parotid enlargement, No lymphadenopathy, No midline deformity and No tender Chest Chest palpation & inspection: normal inspection of the chest and normal palpation of entire chest wall Resp Effort & Inspection: normal respiratory effort and able to speak in complete sentences Auscultation: clear to auscultation bilaterally Cardio Jugular venous distension: no JVD Heart sounds: S1 normal heart sound present and S2 normal heart sound present GI Inspection: Yes normal to inspection Palpation (GI): Soft to palpation, not firm, nontender, no guarding and not rigid General: Yes no CVA tenderness Back/Spine/Pelvis Back: no CVA tenderness and No back tenderness Skin General skin exam: no rashes or lesions noted, elasticity normal and turgor normal Neuro General: patient oriented x3, gait normal, tone normal, moves all extremities, Normal light touch and pain sensation, no meningeal signs, no focal motor deficits and CN's II-XI intact bilaterally Extrem Other: bilateral arms hives General: Yes normal to inspection, Yes full ROM and Yes capillary refill normal Psych Appearance: grossly normal, well kempt and not disheveled Course Course Course Narrative: RME: 38-year-old female presents to ED for itchy rash on bilateral arms intermittently for 1 week. Patient is unknown of any new allergies. Patient denies any tongue swelling, drooling, change in voice, chest pain or shortness of breath. Positive for hives bilateral arms. Negative for facial swelling or tongue swelling. Benadryl prednisone Pepcid ordered Medications Administered Discontinued Medications Generic Name Dose Route Start Last Admin Trade Name Freq PRN Reason Stop Dose Admin Diphenhydramine HCl 50 mg 04/12/24 19:11 04/12/24 19:15 Diphenhydramine Hcl 25 Mg Capsule PO 04/12/24 19:12 50 mg ONCE ONE Administration Famotidine 20 mg 04/12/24 19:11 04/12/24 19:15 Famotidine 20 Mg Tablet PO 04/12/24 19:12 20 mg ONCE ONE Administration Prednisone 60 mg 04/12/24 19:11 04/12/24 19:16 Prednisone 20 Mg Tablet PO 04/12/24 19:12 60 mg ONCE ONE Administration Medical Decision Making Medical Decision Making MDM Narrative: 38 yold female presents to the ED itchy rash on bilateral arms. Patient denies any fever, chills, lip swelling, chest pain or shortness of breath. Physical exam negative for signs of anaphylaxis. Patient given Benadryl prednisone Pepcid. Patient will be treated as allergic reaction informed to follow up with primary care provider. Patient informed to return to the ED immediately if she has any concerning symptoms shows explained. Not suspecting anyphylaxis, jyotsna's telly syndrome, cellulitis, viral rash, shingles, or any other concerning symptoms. Differential Diagnosis Differential Diagnoses: The differential diagnosis associated with the presentation includes (allergic reaction, dermaitits, ) Admission/Observation Consideration of admission/observation: Escalation of care including admission/observation considered Independent Historian Clinical information obtained from an independent historian. History obtained from or confirmed by: Other (patient) Discharge Plan Discharge Clinical Impression: Allergic reaction Patient Disposition: Home, Self-Care Instructions: General Allergic Reaction (ED) Additional Instructions: You will need to follow-up with your primary care provider for an Allergy Patch test. Return to the ED for any worsening itchiness, worsening rash, lip swelling, tongue swelling, drooling, change in voice, chest pain, shortness of breath, or any other concerning symptoms. Prescriptions: New diphenhydramine HCl [Benadryl] 25 mg capsule 25 mg PO TID PRN (Reason: allergic reaction) 7 Days Qty: 21 0RF prednisone 20 mg tablet 40 mg PO DAILY 5 Days Qty: 10 0RF famotidine [Pepcid] 40 mg tablet 40 mg PO DAILY 7 Days Qty: 7 0RF No Action valacyclovir 500 mg tablet 500 mg PO BID 3 Days Qty: 6 6RF Stand Alone Forms: Work/School Release Interventions: ED Discharge Assessment Last Done: 04/12/24 21:12 Discharge Date/Time: 04/12/24 21:13 Print Language: Sudanese
[2024-04-12] MEDS: Famotidine 20 MG TABLET PO (19:15)
[2024-04-12] MEDS: diphenhydrAMINE HCL 25 MG CAPSULE 50 MG PO (19:15)
[2024-04-12] MEDS: predniSONE 20 MG TABLET 60 MG PO (19:16)
--- OUTSIDE RECORDS SUMMARY | 2024-04-12 20:47 | XMS_ITS | Clinical Summary ---
Author Organization [employer] Address [address] [place] [address] 7t [place] [address] Care Team Providers Care Bend Sorter Name Role Phone Shanti Crane MD Primary Care Provider [phone] Allergies No known active allergies Medications loratadine [...] Plan (11/03/2023 4:57 AM EDT): -followed by [facility], last seen in August 2022 -08/25/20 [...] Type Department Care Team Description 03/09/2024 Telephone [facility] MEDICINE [address] [place] [address] Princess Marroquin [place] april recall 03/06/2024 Orders Only [facility] External Provider, [facility] 03/02/2024 Orders Only [facility] External Provider, [facility] 01/18/2024 Orders Only GENERIC EXTERNAL DATA DEPARTMENT [...] 5 Years) and At-Risk Patients (6 to 49) Years) Aged Out No longer eligible based [...] EST Narrative 03/06/2024 3:47 PM EST ? [facility] [place] ? [address] ?[place] [address] ? Ultrasound Report ? Signed ? Patient: Elon,Cata ?MR#: [id number] ?? 90 ? : 1985 ?Acct:[id number] ? Age/Sex: 38 / F ?ADM Date: 03/06/24 ? Loc: HO.MAMMO ? Attending Dr: Ho Aguayo MD ? Ordering Physician: Ho Aguayo MD ?? Date of Service: 03/06/24 ?? Procedure(s): US breast BI limited mamm only ?? Accession Number(s): [id number] ? cc: Shanti Crane MD; Ho Aguayo [...] DD/ 1512 ? TD/TT: 03/06/24 1538 ? Chemical Detection Expert: ? Procedure Note Kamini, Image - 03/06/20[facility] [address] [place] [address] Ultrasound Report Signed Patient: Wei Leon#: [id number] 90 : 1985Acct:[id number] Age/Sex: 38 / FADM Date: 03/06/24 Loc: JANIE Attending Dr: Ho Aguayo MD Ordering Physician: Ho Aguayo MD Date of Service: 03/06/24 Procedure(s): US breast BI limited mamm only Accession Number(s): [id number] cc: Shanti Crane MD; Ho Aguayo MD [...] Sarika Meza DO 03/06/2024 03:44 PM EST RP Dictated By: Sarika Meza DO Signed By: <Electronically signed by Sarika Meza DO in OV> 03/06/24 1544 DD/ 1512 TD/TT: 03/06/24 1538 Chemical Detection Expert: [facility] External Provider IMG US PROCEDURES Final Result * BI Mammogram Diagnostic Tomosynthesis Bilateral (03/02/2024 11:30 AM EST) Anatomical Region Laterality Modality Breast Bilateral Mammography 03/02/2024 11:3 0 AM EST Narrative 03/06/2024 3:47 PM EST ? [facility] ? [address] ?[place] [address] ? Mammography Report ? Signed ? Patient: Leon,Cata ?MR#: [id number] ?? 90 ? : 1985 ?Acct:[id number] ? Age/Sex: 38 / F ?ADM Date: 03/02/24 ? Loc: HO.MAMMO ? Attending Dr: Ho Aguayo MD ? Ordering Physician: Ho Aguayo MD ?Results: 1Negativ ?? e ? Date of Service: 03/02/24 ?Follow Up: 1 Year From Orig ?? inal Mammogram ? Procedure(s): MM tomosynthesis diagnostic BI ?? Accession Number(s): [id number] ? cc: Shanti Crane MD; Ho Aguayo [...] DD/ 1130 ? TD/TT: 03/02/24 1201 ? Chemical Detection Expert: ? Procedure Note Donharsh, Image - 03/06/2024 [place] [facility] [address] [place] [address] Mammography Report Signed Patient: Wei Leon#: [id number] 90 : 1985Acct:[id number] Age/Sex: 38 / FADM Date: 03/02/24 Loc: JANIE Attending Dr: Ho Aguayo MD Ordering Physician: Ho Aguayoesults: 1Negativ e Date of Service: 03/02/24Follow Up: 1 Year From Orig inal Mammogram Procedure(s): MM tomosynthesis diagnostic BI Accession Number(s): [id number] cc: Shanti Crane MD; Ho Aguayo MD [...] 03/06/24 1544 DD/ 1130 TD/TT: 03/02/24 1201 Chemical Detection Expert: [facility] External Provider IMG BI PROCEDURES Final Result * Syphilis Screen (01/18/2024 9:23 AM EST) Syphilis Screen Nonreactive Nonreactive [facility] 01/18/2024 9:23 AM EST 01/18/2024 9:23 AM EST Generic External Data Provider LAB BLOOD ORDERAB LES Final Result Performing Organization Address [facility] de Phone Number [facility] [address] [place] [phone] * Hepatitis C Ab (01/18/2024 9:23 AM EST) Hepatitis C Antibody Nonreactive Nonreactive [facility] Comment:Antibodies to HCV no t detected; does not exclude early acuteHCV infection. 01/18/2024 9:23 AM EST 01/18/2024 9:23 AM EST Generic External Data Provider LAB BLOOD ORDERAB LES Final Result Performing Organization Address [facility] Phone Number [facility] [address] [place] [phone] * Hepatitis B surface antigen, EIA (01/18/2024 9:23 AM EST) Hepatitis B Surface Ag Negative Negative [facility] 01/18/2024 9:23 AM EST 01/18/2024 9:23 AM EST Generic External Data Provider LAB BLOOD ORDERAB LES Final Result Performing Organization Address [facility] Number [facility] [address] [place] [phone] * HIV-1/2 Antigen and Antibodies, Fourth Generation, with Reflexes (01/18/2024 9:23 AM EST) HIV AB/AG Nonreactive Nonreactive [facility] Comment:HIV-1 p24 Ag and/or HIV-1/HIV-2 Ab not detected.A test result that is nonreactive does not exclude thepossibility of exposure to or infection with HIV-1 and/orHIV-2. Nonreactive results in this assay for individualswith prior exposure to HIV-1 and/or HIV-2 may be due toantigen and antibody levels that are below the limit ofdetection of this assay.The [facility] ExchangeniDepartment of Health and Human Services HIV Ag/Ab Combo assay result andsupplemental assay results should be interpreted inconjunction with the patient's clinical presentation,history and other laboratory results. If the results areinconsistent with clinical evidence, additional testing issuggested to confirm the result. 01/18/2024 9:23 AM EST 01/18/2024 9:23 AM EST Generic External Data Provider LAB BLOOD ORDERAB LES Final Result Performing Organization Address [facility] Co de Phone Number [facility] [address] [place] [phone] * Bacterial Vaginosis (01/18/2024 8:25 AM EST) TRICHOMONAS VAGINALIS DETECTION BY PCR NOT DETECTED Not Detect [facility] BACTERIAL VAGINOSIS DETECTION BY PCR NEGATIVE Negative [facility] Comment:The BV organism targ ets of [...] DETECTION BY PCR NOT DETECTED Not Detect [facility] Corina glab krusei PCR NOT DETECTED Not Detect [facility] 01/18/2024 8:25 AM EST 01/18/2024 1:25 PM EST Generic External Data Provider LAB MICROBIOLOGY - GENERAL ORDERABLES Final Result Performing Organization Address [facility] Co de Phone Number [facility] [address] [place] [phone] * Chlamydia/N. Gonorrhoeae RNA, TMA, Urogenitial (01/18/2024 8:25 AM EST) CT PCR NOT DETECTED Not Detect. [facility] Comment:A not detected test result does [...] psychologicalconsequences. NG PCR NOT DETECTED Not Detect. [facility] Comment:A not detected test result does [...] AM EST 01/18/2024 1:25 PM EST Narrative [facility] - 01/18/2024 3:13 PM EST Vaginal us Generic External Data Provider LAB MICROBIOLOGY - GENERAL ORDERABLES Final Result [facility] [address] [place] [phone] * Hm Pap Smear (08/26/2021) Pap Negative for intraephithelial lesion or malignancy Negative for intraephithelial lesion or malignancy, Other HPV Undetected Historical Provider HEALTH MAINTENANCE Final Result from Last 3 Months or Most Recently Relevant to Health Maintenance Insurance HSN PARTIAL Care Teams Bend Sorter Relationship Specialty Start Date End Date Shanti Crane MD [address] [place] [phone] PCP - General Family Medicine 02/14/18
--- OUTSIDE RECORDS SUMMARY | 2024-04-12 20:47 | XMS_ITS | Clinical Summary ---
Author Organization [facility] Address [address] [place] [address] Care Team Providers Care Legal Billing Coordinator Name Role Phone Unavailable Primary Care Provider Unavailabl e Surgical History Surgery Date Site/Laterality Comments OTHER SURGICAL HISTORY PROCEDURE: NC DILATION & CURETTAGE DX&/THER NONOBSTETRIC Medical History Medical History Date Comments hemorrhage DX:Postpar shoshana hemorrhage Genital herpes DX:Genital herpe s Fibromyalgia DX:Fibromyalgia Social History Tobacco Use Types Packs/Day Years Used Date Smoking Tobacco: Never Assessed Comments Unknown Sex and Gender Information Value Date Recorded Sex Assigned at Not on file Legal Sex Female 12:25 PM EST Gender Identity Not on file Sexual Orientation Not on file Obstetrics History Plan of Treatment Health Maintenance Due Date Last Done Comments DTaP,Tdap,and Td Vaccines (1 - Tdap) 2005 Hepatitis B Vaccines (1 of 3 - 19+ 3-dose series) 2005 Cervical Cancer Screening: P ap Smear 07/22/2007 COVID-19 Vaccine ( - 2023-2 5 season) 2023 Influenza Vaccine (#1) 2023 [...] patient's age to complete this topic Meningococcal B Vacine Aged Out No lo nger eligible based on patient's age to complete [...]
--- OUTSIDE RECORDS SUMMARY | 2024-04-12 20:47 | XMS_ITS | Encounter Summary ---
Author Organization [employer] Address [address] [place] [address] [address] [place] [address] Care Team Providers Care Finish Specialist Name Role Phone Shanti Crane MD Primary Care Provider [phone] Encounter Details Date Type Department Care Team (Late st Contact Info) Description 11/19/2022 Abstract [facility] MEDICINE [address] [place] [address] Melissa Gallardo Social History Tobacco Use Types [...] on filedocumented in this encounter Care Teams Finish Specialist Relationship Specialty Start Date End Date Shanti Crane MD [address] [place] [address] PCP - General Family Medicine 02/14/18 documented as of this encounter
[2024-04-12 21:12] VITALS: BP 113/75; PULSE 107; RESP 16; TEMP 37.2; O2SAT 96
== END 2024-04-12 21:13 | disposition home or self-care (01) ==
PROVIDERS: Emergency Provider Student in an Organized Health Care Education/Training Program
DX: T78.40XA Allergy, unspecified, initial encounter (principal); R21 Rash and other nonspecific skin eruption; X58.XXXA Exposure to other specified factors, initial encounter
CPT/HCPCS: 99283